=== PATIENT | female | born 1995 | race Caucasian/White ===

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

== ENCOUNTER 2017-01-29 08:35 | Emergency (ER) | payer OTHER ==
[2017-01-29 09:01] VITALS: BP 153/70; PULSE 83; RESP 16; TEMP 98.4
--- NOTE | 2017-01-29 09:27 | ED ---
General Adult HPI - General Chief complaint: Allergic Reaction Stated complaint: HIVES Time Seen by Provider: 01/29/17 09:11 Source: patient, RN notes reviewed Mode of arrival: ambulatory Limitations: no limitations - History of Present Illness Initial comments: 21-year-old female presents to the emergency department with a chief complaint of hives. Patient states yesterday she noticed some hives on her hands and feet. Patient states she woke up today and they were on her arms and legs. She took Benadryl which did help with the itching but she still is having some itching. Patient states she has a bad sunburn to the back from the float down so she thought it could be associated with that she denies any new soaps or detergents. She started some new psychiatric medications a week ago but states that this first time that she's noticed the hives. Patient denies any difficulty breathing or shortness of breath with these. Patient states she is not currently having any other symptoms. Patient denies any recent fever, chills , shortness of breath, chest pain, back pain, abdominal pain, nausea vomiting, numbness or tingling, dysuria or hematuria, constipation or diarrhea, headaches or visual changes, or any other current symptoms. - Related Data Home Medications Medication Instructions Recorded Confirmed Cyclobenzaprine [Flexeril] 5 mg PO TID PRN 01/29/17 01/29/17 Desvenlafaxine Succinate [Pristiq] 50 mg PO DAILY 01/29/17 01/29/17 Ibuprofen [Motrin] 800 mg PO TID PRN 01/29/17 01/29/17 OXcarbazepine [Trileptal] 300 mg PO BID 01/29/17 01/29/17 Previous Rx's Medication Instructions Recorded predniSONE 50 mg PO DAILY #5 tab 01/29/17 Allergies Allergy/AdvReac Type Severity Reaction Status Date / Time Sulfa (Sulfonamide Allergy Rash/Hives Verified 01/29/17 09:15 Antibiotics) Review of Systems ROS Statement: Those systems with pertinent positive or pertinent negative responses have been documented in the HPI. ROS Other: All systems not noted in ROS Statement are negative. Past Medical History Past Medical History: No Reported History History of Any Multi-Drug Resistant Organisms: MRSA Date of last positivie culture/infection: 2015 MDRO Source:: left side abscess Past Surgical History: No Surgical Hx Reported Past Psychological History: Anxiety, Bipolar, Depression Smoking Status: Never smoker Past Alcohol Use History: None Reported Past Drug Use History: None Reported General Exam Limitations: no limitations General appearance: alert, in no apparent distress ENT exam: Present: normal exam, mucous membranes moist Neck exam: Present: normal inspection. Absent: tenderness, meningismus, lymphadenopathy Respiratory exam: Present: normal lung sounds bilaterally. Absent: respiratory distress, wheezes, rales, rhonchi, stridor Cardiovascular Exam: Present: regular rate, normal rhythm, normal heart sounds. Absent: systolic murmur, diastolic murmur, rubs, gallop, clicks Neurological exam: Present: alert, oriented X3 Psychiatric exam: Present: normal affect, normal mood Skin exam: Present: warm, dry, urticaria (Diffusely), other (Sunburn to the back ) Course Vital Signs 01/29/17 08:56 Temperature 98.4 F Pulse Rate 83 Respiratory 16 Rate Blood Pressure 153/70 O2 Sat by Pulse 96 Oximetry Medical Decision Making - Medical Decision Making 21-year-old female presents emergency Department with a chief complaint of urticaria. At this time we will start patient steroids. We discussed continuing to take Benadryl. We did discuss return parameters follow-up and all the patient's questions. They stated they understood and the on agreement this plan. All questions have been answered. They will be discharged. Disposition Clinical Impression: Urticaria, Sunburn Disposition: HOME SELF-CARE Condition: Stable Instructions: Urticaria (ED) Additional Instructions: Please use medication as discussed. Please follow up with family doctor if symptoms have not improved over the next two days. Please return to the emergency room if your symptoms increase or worsen or for any other concerns. Prescriptions: predniSONE 50 mg PO DAILY #5 tab Referrals: Bryan Magdaleno MD [Primary Care Provider] - 1-2 days Time of Disposition: 09:27
== END 2017-01-29 09:35 | disposition home or self-care (01) ==
LOC: EC 08:35
DX: L50.0 Allergic urticaria (principal); L55.9 Sunburn, unspecified; F41.9 Anxiety disorder, unspecified; F31.9 Bipolar disorder, unspecified; Z86.14 Personal history of Methicillin resistant Staphylococcus aureus infection; Z79.899 Other long term (current) drug therapy; Z88.2 Allergy status to sulfonamides
CPT/HCPCS: 99283

== ENCOUNTER 2017-09-10 22:35 | Emergency (ER) | payer OTHER ==
[2017-09-10] MEDS ORDERED: KETOROLAC 60 MG/2 ML VIAL IM STA (23:33)
[2017-09-11 00:04] LABS: Appearance,Urine Clear (Clear); Bilirubin,Urine Negative (Negative); Blood,Urine Negative (Negative); Color,Urine Yellow; Glucose,Urine (UA) Negative (Negative); Ketones,Urine Negative (Negative); Leukocyte Esterase,Urine Small (Negative); Mucus,Urine Occasional /hpf; Nitrite,Urine Negative (Negative); Protein,Urine Negative (Negative); RBC,Urine <1 /hpf (0-5); Specific Gravity,Urine 1.023 (1.001-1.035); Squamous Epithelial Cell,Urine 7 /hpf (0-4); WBC,Urine 6 /hpf (0-5)
--- NOTE | 2017-09-11 00:15 | XR ---
EXAMINATION TYPE: XR chest 2V DATE OF EXAM: 09/11/2017 COMPARISON: NONE HISTORY: Left rib pain TECHNIQUE: Frontal and lateral views of the chest are obtained. FINDINGS: Heart and mediastinum are normal. Lungs are clear. Diaphragm is normal. Bony thorax appear s normal. IMPRESSION: Multiple chest
--- NOTE | 2017-09-11 00:41 | ED ---
Back Pain HPI - General Chief Complaint: Back Pain/Injury Stated Complaint: rib pain Time Seen by Provider: 09/10/17 22:59 Source: patient Limitations: no limitations - History of Present Illness Initial Comments: 22-year-old female presenting for evaluation of left-sided rib pain. She states this started while she was vomiting a couple days ago and acutely worsened yesterday. Pain is to the left lower posterior rib and is tender along the rib itself. She denies any continued nausea and vomiting. There is no hematuria or urinary frequency. Pain is worse with deep inspiration only at that site and not within the rest of the chest. She has not taken any medications for symptom control and states that she takes shallow breaths the pain is not as bad. - Related Data Previous Rx's Medication Instructions Recorded Ibuprofen [Motrin] 800 mg PO Q6HR #30 tab 09/11/17 Allergies Allergy/AdvReac Type Severity Reaction Status Date / Time Sulfa (Sulfonamide Allergy Rash/Hives Verified 09/10/17 22:59 Antibiotics) Review of Systems ROS Statement: Those systems with pertinent positive or pertinent negative responses have been documented in the HPI. ROS Other: All systems not noted in ROS Statement are negative. Constitutional: Denies: fever, chills Eyes: Denies: eye pain, vision change ENT: Denies: ear pain, throat pain Respiratory: Denies: cough, dyspnea, wheezes Cardiovascular: Denies: chest pain, palpitations Gastrointestinal: Reports: nausea, vomiting. Denies: abdominal pain Genitourinary: Denies: urgency, dysuria, hematuria Musculoskeletal: Reports: back pain. Denies: arthralgia, myalgia Skin: Denies: rash, lesions Neurological: Denies: headache, weakness Past Medical History Past Medical History: No Reported History History of Any Multi-Drug Resistant Organisms: MRSA Date of last positivie culture/infection: 2015 MDRO Source:: left side abscess Past Surgical History: No Surgical Hx Reported Past Psychological History: Anxiety, Bipolar, Depression Smoking Status: Never smoker Past Alcohol Use History: Occasional Past Drug Use History: Marijuana General Exam Limitations: no limitations General appearance: alert, in no apparent distress Head exam: Present: atraumatic, normocephalic, normal inspection Eye exam: Present: normal appearance, PERRL, EOMI. Absent: scleral icterus, conjunctival injection Neck exam: Present: normal inspection, tenderness Respiratory exam: Present: normal lung sounds bilaterally, chest wall tenderness (Left lower chest wall along rib #10). Absent: respiratory distress , wheezes, rales, rhonchi, stridor Cardiovascular Exam: Present: regular rate, normal rhythm GI/Abdominal exam: Present: soft. Absent: distended, tenderness, guarding, rebound, rigid Rectal exam: Present: deferred Extremities exam: Present: normal inspection, full ROM Back exam: Present: full ROM, tenderness. Absent: vertebral tenderness, rash noted Neurological exam: Present: alert, oriented X3 Psychiatric exam: Present: normal affect, normal mood Skin exam: Present: warm, dry, intact Course Vital Signs 09/10/17 22:37 Temperature 98.6 F Pulse Rate 87 Respiratory 18 Rate Blood Pressure 131/87 O2 Sat by Pulse 98 Oximetry Medical Decision Making - Medical Decision Making 22-year-old female presented for evaluation of left lower rib pain following particularly forceful vomiting. On physical examination she has tenderness along rib #10 however chest x-ray shows no acute process. Labs revealed no significant abnormalities and the patient was given intramuscular Toradol and on reevaluation had improvement in her symptoms. She was informed of results and through shared decision making it was determined that she would be discharged with instructions to follow-up with her primary care physician but to return to this facility if her symptoms should worsen or persist. The patient acknowledged an understanding of all information provided and agreed with this plan of care. - Lab Data Lab Results 09/10/17 09/10/17 Range/Units 23:52 23:52 Urine Color Yellow Urine Appearance Clear (Clear) Urine pH 6.0 (5.0-8.0) Ur Specific [place] 1.023 (1.001-1.035) Urine Protein Negative (Negative) Urine Glucose (UA) Negative (Negative) Urine Ketones Negative (Negative) Urine Blood Negative (Negative) Urine Nitrite Negative (Negative) Urine Bilirubin Negative (Negative) Urine Urobilinogen 2.0 (<2.0) mg/dL Ur Leukocyte Esterase Small H (Negative) Urine RBC <1 (0-5) /hpf Urine WBC 6 H (0-5) /hpf Ur Squamous Epith Cells 7 H (0-4) /hpf Urine Mucus Occasional H (None) /hpf Urine HCG, Qual Not Detected (Not Detectd) Disposition Clinical Impression: Rib pain on left side Disposition: HOME SELF-CARE Condition: Stable Instructions: Costochondritis (ED) Additional Instructions: Please use medication as discussed. Please follow up with family doctor if symptoms have not improved over the next two days. Please return to the emergency room if your symptoms increase or worsen or for any other concerns. Prescriptions: Ibuprofen [Motrin] 800 mg PO Q6HR #30 tab Referrals: Bryan Magdaleno MD [Primary Care Provider] - 1-2 days Time of Disposition: 00:41
[2017-09-11 00:52] VITALS: BP 106/63; PULSE 82; RESP 16; TEMP 97.3
== END 2017-09-11 00:52 | disposition home or self-care (01) ==
LOC: EC 22:35
DX: R07.81 Pleurodynia (principal); Z86.14 Personal history of Methicillin resistant Staphylococcus aureus infection; Z88.2 Allergy status to sulfonamides
CPT/HCPCS: 99283; 96372; 81001; 81025; 71046; J1885

== ENCOUNTER 2017-11-25 12:00 | Emergency (ER) | payer OTHER ==
--- NOTE | 2017-11-25 13:05 | ED ---
General Adult HPI - General Chief complaint: Vaginal Bleeding Stated complaint: early preg/bleeding & cramping Time Seen by Provider: 11/25/17 13:00 Source: patient, RN notes reviewed Mode of arrival: ambulatory Limitations: no limitations - History of Present Illness Initial comments: Patient 22-year-old female who is G2, P1 approximately 4-6 weeks by last menstrual cycle, presenting to the emergency room today with a chief complaint of abdominal cramping and some vaginal spotting that was this morning. States her spotting at this time. Patient does admit still some cramping. Unable to see her OB physician came here to the emergency room. Patient states she plans to see Dr. Gutierrez. Patient denies any other complaints or symptoms at this time. Patient denies any recent fever, chills, shortness of breath, chest pain, back pain, nausea or vomiting, numbness or tingling, dysuria or hematuria, constipation or diarrhea, headaches or visual changes, or any other complaints. - Related Data Previous Rx's Medication Instructions Recorded Nitrofurantoin Monohyd/M-Cryst 100 mg PO Q12HR #14 cap 11/25/17 [Macrobid] Allergies Allergy/AdvReac Type Severity Reaction Status Date / Time Sulfa (Sulfonamide Allergy Rash/Hives Verified 11/25/17 13:19 Antibiotics) Review of Systems ROS Statement: Those systems with pertinent positive or pertinent negative responses have been documented in the HPI. ROS Other: All systems not noted in ROS Statement are negative. Past Medical History Past Medical History: No Reported History History of Any Multi-Drug Resistant Organisms: MRSA Date of last positivie culture/infection: 2015 MDRO Source:: left side abscess Past Surgical History: No Surgical Hx Reported Past Psychological History: Anxiety, Bipolar, Depression Smoking Status: Never smoker Past Alcohol Use History: None Reported Past Drug Use History: Marijuana General Exam - General Exam Comments Initial Comments: General: The patient is awake and alert, in no distress, and does not appear acutely ill. Eye: Pupils are equal, round and reactive to light, extra-ocular movements are intact. No nystagmus. There is normal conjunctiva bilaterally. No signs of icterus. Ears, nose, mouth and throat: There are moist mucous membranes and no oral lesions. Neck: The neck is supple, there is no tenderness or JVD. Cardiovascular: There is a regular rate and rhythm. No murmur, rub or gallop is appreciated. Respiratory: Lungs are clear to auscultation, respirations are non-labored, breath sounds are equal. No wheezes, stridor, rales, or rhonchi. Gastrointestinal: Soft, non-distended, non-tender abdomen without masses or organomegaly noted. There is no rebound or guarding present. No CVA tenderness. Musculoskeletal: Normal ROM, no tenderness. Strength 5/5. Sensation intact. Pulses equal bilaterally 2+. Neurological: A&O x 3. CN II-XII intact, There are no obvious motor or sensory deficits. Coordination appears grossly intact. Speech is normal. Skin: Skin is warm and dry and no rashes or lesions are noted. Psychiatric: Cooperative, appropriate mood & affect, normal judgment. Limitations: no limitations Course Vital Signs 11/25/17 12:14 Temperature 98.8 F Pulse Rate 92 Respiratory 18 Rate Blood Pressure 116/74 O2 Sat by Pulse 100 Oximetry Medical Decision Making - Medical Decision Making Patient's labs reviewed and does show mild elevation of liver enzymes. No old labs to compare to. Patient's urinalysis shows a few squamous cells but possible urinary tract infection. Patient is Rh-. She had spotting earlier in the day. No bleeding at this time. Patient will be given Venecia. Her ultrasound shows no IUP. Does show ovarian cyst on the right. Cannot exclude possible ectopic versus early gestation versus missed . Patient's beta hCG 447 today. Patient resting comfortably at this time. Abdomen soft on palpation. Case was discussed with attending physician Dr. Saleem. Patient will be given Venecia prior to discharge to follow-up the OB over the next 2 days. Will be given a prescription for antibiotics of Macrobid to cover for UTI as cultures pending. Will be given a prescription for repeat blood draw 2 days. Patient advised return if symptoms increase worsen or fail concerns. - Lab Data Result diagrams: 11/25/17 13:32 11/25/17 13:32 Lab Results 11/25/17 11/25/17 11/25/17 Range/Units 13:32 13:32 13:32 WBC 5.7 (4.0-11.0) k/uL RBC 4.60 (3.80-5.40) m/uL Hgb 13.8 (11.4-16.0) gm/dL Hct 39.9 (34.0-46.0) % MCV 86.6 (80.0-100.0) fL MCH 29.9 (25.0-35.0) pg MCHC 34.5 (31.0-37.0) g/dL RDW 12.9 (11.5-15.5) % Plt Count 176 (150-450) k/uL Neutrophils % 68 % Lymphocytes % 19 % Monocytes % 6 % Eosinophils % 5 % Basophils % 1 % Neutrophils # 3.9 (1.3-7.7) k/uL Lymphocytes # 1.1 (1.0-4.8) k/uL Monocytes # 0.3 (0-1.0) k/uL Eosinophils # 0.3 (0-0.7) k/uL Basophils # 0.0 (0-0.2) k/uL Sodium 139 (137-145) mmol/L Potassium 3.8 (3.5-5.1) mmol/L Chloride 105 (98-107) mmol/L Carbon Dioxide 24 (22-30) mmol/L Anion Gap 10 mmol/L BUN 5 L (7-17) mg/dL Creatinine 0.40 L (0.52-1.04) mg/dL Est GFR (CKD-EPI)AfAm >90 (>60 ml/min/1.73 sqM) Est GFR (CKD-EPI)NonAf >90 (>60 ml/min/1.73 sqM) Glucose 97 (74-99) mg/dL Calcium 9.4 (8.4-10.2) mg/dL Total Bilirubin 0.7 (0.2-1.3) mg/dL AST 195 H (14-36) U/L ALT 262 H (9-52) U/L Alkaline Phosphatase 81 (38-126) U/L Total Protein 6.9 (6.3-8.2) g/dL Albumin 4.0 (3.5-5.0) g/dL HCG, Quant 447.6 mIU/mL Urine Color Urine Appearance (Clear) Urine pH (5.0-8.0) Ur Specific [place] (1.001-1.035) Urine Protein (Negative) Urine Glucose (UA) (Negative) Urine Ketones (Negative) Urine Blood (Negative) Urine Nitrite (Negative) Urine Bilirubin (Negative) Urine Urobilinogen (<2.0) mg/dL Ur Leukocyte Esterase (Negative) Urine RBC (0-5) /hpf Urine WBC (0-5) /hpf Ur Squamous Epith Cells (0-4) /hpf Amorphous Sediment (None) /hpf Urine Bacteria (None) /hpf Urine Mucus (None) /hpf Blood Type A Negative Blood Type Recheck No 11/25/17 Range/Units 13:32 WBC (4.0-11.0) k/uL RBC (3.80-5.40) m/uL Hgb (11.4-16.0) gm/dL Hct (34.0-46.0) % MCV (80.0-100.0) fL MCH (25.0-35.0) pg MCHC (31.0-37.0) g/dL RDW (11.5-15.5) % Plt Count (150-450) k/uL Neutrophils % % Lymphocytes % % Monocytes % % Eosinophils % % Basophils % % Neutrophils # (1.3-7.7) k/uL Lymphocytes # (1.0-4.8) k/uL Monocytes # (0-1.0) k/uL Eosinophils # (0-0.7) k/uL Basophils # (0-0.2) k/uL Sodium (137-145) mmol/L Potassium (3.5-5.1) mmol/L Chloride (98-107) mmol/L Carbon Dioxide (22-30) mmol/L Anion Gap mmol/L BUN (7-17) mg/dL Creatinine (0.52-1.04) mg/dL Est GFR (CKD-EPI)AfAm (>60 ml/min/1.73 sqM) Est GFR (CKD-EPI)NonAf (>60 ml/min/1.73 sqM) Glucose (74-99) mg/dL Calcium (8.4-10.2) mg/dL Total Bilirubin (0.2-1.3) mg/dL AST (14-36) U/L ALT (9-52) U/L Alkaline Phosphatase (38-126) U/L Total Protein (6.3-8.2) g/dL Albumin (3.5-5.0) g/dL HCG, Quant mIU/mL Urine Color Yellow Urine Appearance Cloudy H (Clear) Urine pH 7.0 (5.0-8.0) Ur Specific [place] 1.007 (1.001-1.035) Urine Protein Negative (Negative) Urine Glucose (UA) Negative (Negative) Urine Ketones Negative (Negative) Urine Blood Negative (Negative) Urine Nitrite Negative (Negative) Urine Bilirubin Negative (Negative) Urine Urobilinogen <2.0 (<2.0) mg/dL Ur Leukocyte Esterase Large H (Negative) Urine RBC 29 H (0-5) /hpf Urine WBC 58 H (0-5) /hpf Ur Squamous Epith Cells 86 H (0-4) /hpf Amorphous Sediment Rare H (None) /hpf Urine Bacteria Rare H (None) /hpf Urine Mucus Occasional H (None) /hpf Blood Type Blood Type Recheck Disposition Clinical Impression: UTI (urinary tract infection), Threatened miscarriage Disposition: HOME SELF-CARE Condition: Good Instructions: Threatened Miscarriage (ED) Additional Instructions: Please use antibiotic as prescribed. Please follow-up with OB and have repeat blood draw in 2 days. Please return to emergency room if any symptoms increase worsen. Prescriptions: Nitrofurantoin Monohyd/M-Cryst [Macrobid] 100 mg PO Q12HR #14 cap Is patient prescribed a controlled substance at d/c from ED?: No Referrals: Bryan Magdaleno MD [Primary Care Provider] - 1-2 days Mariely Gutierrez DO [Doctor of Osteopathic Medicine] - 1-2 days Time of Disposition: 15:03
[2017-11-25 13:55] LABS: Basophils % (A) 1 %; Eosinophils # (A) 0.3 k/uL (0-0.7); Eosinophils % (A) 5 %; HCT 39.9 % (34.0-46.0); HGB 13.8 gm/dL (11.4-16.0); Lymphocytes # (A) 1.1 k/uL (1.0-4.8); Lymphocytes % (A) 19 %; MCH 29.9 pg (25.0-35.0); MCHC 34.5 g/dL (31.0-37.0); MCV 86.6 fL (80.0-100.0); Monocytes # (A) 0.3 k/uL (0-1.0); Monocytes % (A) 6 %; Neutrophils # (A) 3.9 k/uL (1.3-7.7); Neutrophils % (A) 68 %; Platelet Count 176 k/uL (150-450); RDW 12.9 % (11.5-15.5); WBC 5.7 k/uL (4.0-11.0)
[2017-11-25 14:02] LABS: Amorphous Sediment,Urine Rare /hpf; Appearance,Urine Cloudy (Clear); Bacteria,Urine Rare /hpf; Bilirubin,Urine Negative (Negative); Blood,Urine Negative (Negative); Color,Urine Yellow; Glucose,Urine (UA) Negative (Negative); Ketones,Urine Negative (Negative); Leukocyte Esterase,Urine Large (Negative); Mucus,Urine Occasional /hpf; Nitrite,Urine Negative (Negative); Protein,Urine Negative (Negative); RBC,Urine 29 /hpf (0-5); Specific Gravity,Urine 1.007 (1.001-1.035); Squamous Epithelial Cell,Urine 86 /hpf (0-4); Urobilinogen,Urine <2.0 mg/dL (<2.0); WBC,Urine 58 /hpf (0-5)
[2017-11-25 14:06] LABS: ALT 262 U/L (9-52); AST 195 U/L (14-36); Alkaline Phosphatase 81 U/L (38-126); Anion Gap 10 mmol/L; Blood Urea Nitrogen 5 mg/dL (7-17); Calcium 9.4 mg/dL (8.4-10.2); Carbon Dioxide 24 mmol/L (22-30); Chloride 105 mmol/L (98-107); Glucose 97 mg/dL (74-99); Potassium 3.8 mmol/L (3.5-5.1); Sodium 139 mmol/L (137-145); Total Bilirubin 0.7 mg/dL (0.2-1.3); Total Protein 6.9 g/dL (6.3-8.2)
[2017-11-25 14:20] LABS: HCG,Quantitative Serum 447.6 mIU/mL
--- NOTE | 2017-11-25 14:30 | US ---
EXAMINATION TYPE: Transabdominal DATE OF EXAM: 09/08/17 COMPARISON: NONE CLINICAL HISTORY: Pain. Pt states vaginal spotting and cramping that started today EXAM PERFORMED: Transvaginal (TV) and Transabdominal (TA) EXAM MEASUREMENTS: GESTATIONAL AGE / DATING Physician Established: Not yet established Dates by LMP: (4 weeks/6 days) EDC: 07/29/2018 Dates by First Scan: no prior Dates by Current Scan for: No IUP seen at this time MATERNAL ANATOMY Uterus: 7.3 x 4.1 x 5.2 cm Right Ovary: 3.4 x 2.6 x 2.5 cm Left Ovary: 2.2 x 1.7 x 2.0 cm Post CDS / Adnexa: wnl Presence of free fluid: No Presence of corpus luteal cyst: Right Ovary= 2.3 x 1.7 x 1.7 cm GESTATION / SURVEY IUP: No IUP seen at this time Date of LMP: 10/22/2017 Beta HcG (if available): Not available at this time No IUP seen at this time, Endo thickness= 1.1 cm, probable corpus leut on right ovary IMPRESSION: No intrauterine or yolk sac identified. There is a right ovarian cyst measuring 2.3 cm. Dif ferential diagnosis would include normal too early to detect. Missed or ectopic pr egnancy not excluded. Correlate with serial beta hCG and pelvic ultrasound.
[2017-11-25] MEDS ORDERED: Rhogam IMMUNE GLOBULIN 1,500 UNIT/1 ML IM ONE (15:01)
[2017-11-25 16:40] VITALS: BP 112/74; PULSE 90; RESP 18; TEMP 99.2
== END 2017-11-25 16:39 | disposition home or self-care (01) ==
LOC: EC 12:00
DX: O20.0 Threatened abortion (principal); O23.41 Unspecified infection of urinary tract in pregnancy, first trimester; O34.81 Maternal care for other abnormalities of pelvic organs, first trimester; N83.201 Unspecified ovarian cyst, right side; Z3A.01 Less than 8 weeks gestation of pregnancy; Z86.14 Personal history of Methicillin resistant Staphylococcus aureus infection; Z88.2 Allergy status to sulfonamides
CPT/HCPCS: 99284; 96372; 36415; 86900; 86901; 80053; 85025; 86850; 81001; 84702; 87086; 76801; 76817; J2791

== ENCOUNTER → 2017-11-27 | Outpatient (CLI) | payer OTHER | END | disposition home or self-care (01) | LOC: LABWHC1 14:34 | PROVIDERS: ATTEND Physician Assistant | DX: O20.0 Threatened abortion (principal); Z3A.00 Weeks of gestation of pregnancy not specified | CPT/HCPCS: 36415; 84702 ==

== ENCOUNTER → 2017-11-30 | Outpatient (CLI) | payer OTHER | END | disposition home or self-care (01) | LOC: LABWHC1 13:16 | PROVIDERS: ATTEND Obstetrics & Gynecology | DX: Z34.00 Encounter for supervision of normal first pregnancy, unspecified trimester (principal); Z3A.00 Weeks of gestation of pregnancy not specified | CPT/HCPCS: 36415; 84702 ==

== ENCOUNTER → 2017-12-14 | Outpatient (CLI) | payer OTHER ==
--- NOTE | 2017-12-14 13:46 | US ---
EXAMINATION TYPE: Transabdominal DATE OF EXAM: 09/08/17 COMPARISON: US 11/25/2017 CLINICAL HISTORY: Z36 confrim dates. EXAM PERFORMED: Transvaginal (TV) and Transabdominal (TA) EXAM MEASUREMENTS: GESTATIONAL AGE / DATING Physician Established: Unknown Dates by LMP: ( 7 weeks/ 4 days) EDC: 07/29/2018 Dates by First Scan; Unknown. IUP not seen. Dates by Current Scan for: ( 5 weeks/1 days) EDC: 08/08/2018 MATERNAL ANATOMY Uterus: 8.7 x 5.5 x 5.3 cm Right Ovary: 3.2 x 2.3 x 2.3 cm Left Ovary: 2.3 x 1.8 x 1.8 cm Post CDS / Adnexa: wnl Presence of free fluid: no Presence of corpus luteal cyst: right side = 1.9 x 1.2 x1.2 cm Presence of subchorionic bleed: 4 mm anterior to Gestational Sac. GESTATION / SURVEY CRL: ( weeks/ days) MSD: 1.8 cm 5 weeks/ 1 day Yolk Sac (normal less than 6mm): 0.5 cm Heart Rate: IUP not definitely identified. Rhythm: IUP not definitely identified IUP: No IUP seen at this time Nuchal Translucency 10-14wks (normal less than 3mm): IUP not definitely identified Date of LMP: 10/22/2017 Beta HcG (if available): IMPRESSION: Intrauterine gestational sac and yolk sac without current visualization of the pole . This may represent a normal intrauterine as the calculated sonographic age is 5 weeks and 1 day, however correlation with beta hCG trend is recommended and repeat pelvic ultrasound in 5-10 d ays to ensure findings do not represent anembryonic .
== END | disposition home or self-care (01) ==
LOC: RADUSWWP 12:23
PROVIDERS: ATTEND Obstetrics & Gynecology
DX: Z36.9 Encounter for antenatal screening, unspecified (principal)
CPT/HCPCS: 76801; 76817

== ENCOUNTER → 2017-12-15 | Outpatient (CLI) | payer OTHER | END | disposition home or self-care (01) | LOC: LABWHC1 11:44 | PROVIDERS: ATTEND Obstetrics & Gynecology | DX: Z34.00 Encounter for supervision of normal first pregnancy, unspecified trimester (principal); Z3A.00 Weeks of gestation of pregnancy not specified | CPT/HCPCS: 36415; 84702 ==

== ENCOUNTER → 2017-12-25 | Outpatient (CLI) | payer OTHER ==
--- NOTE | 2017-12-25 14:41 | US ---
EXAMINATION TYPE: Transabdominal DATE OF EXAM: 09/08/17 COMPARISON: First trimester ultrasound from 11 days ago CLINICAL HISTORY: Z36 follow up to abnormal US. Confirm dates, 2, para 1 EXAM PERFORMED: Transvaginal (TV) and Transabdominal (TA) EXAM MEASUREMENTS: GESTATIONAL AGE / DATING Physician Established: Not established yet Dates by LMP: (9 weeks/1 days) EDC: 07/29/2018 Dates by First Scan: (7 weeks/5 days) EDC: 08/08/2018 Dates by Current Scan for: (6 weeks/2 days) EDC: 08/18/2018 MATERNAL ANATOMY Uterus: 9.0 x 5.1 x 6.1cm, anteverted Right Ovary: 2.4 x 1.9 x 2.0cm Left Ovary: 2.4 x 1.4 x 1.8cm Post CDS / Adnexa: wnl Presence of free fluid: no Presence of corpus luteal cyst: right ovary: 1.5 x 1.3 x 1.6cm Presence of subchorionic bleed: no GESTATION / SURVEY CRL: 0.3cm (6 weeks/0 days) MSD: 2.0cm (6 weeks/3 days) Yolk Sac (normal less than 6mm): 5.8mm No heart tones seen at this time Date of LMP: 10/22/2017 Beta HcG (if available): Not available at time of exam There is persistent oval anechoic area with 3 mm rim hyperechoic area. This could reflect gestational sac and yolk sac. Some increased growth in gestational sac is noted. There is peripheral 3 mm nodula r area could reflect early pole. heart tones cannot be detected despite several attempts. No free fluid is seen in pelvis. Both ovaries are seen. Within right ovary there is 1.5 cm thin-walled cystic lesion likely reflecting corpus luteal cyst. No suspicious extra ovarian adnexal masses are noted. IMPRESSION: Suspected interval progression in intrauterine , correlate with beta-hCG values. Serial beta hCG and ultrasound follow-up is advised until heart rate is detected as other etiologies are n ot excluded.
== END | disposition home or self-care (01) ==
LOC: RADUSWWP 13:39
PROVIDERS: ATTEND Obstetrics & Gynecology
DX: O02.81 Inappropriate change in quantitative human chorionic gonadotropin (hCG) in early pregnancy (principal); Z3A.00 Weeks of gestation of pregnancy not specified
CPT/HCPCS: 76801; 76817

== ENCOUNTER → 2017-12-28 | Outpatient (CLI) | payer OTHER | END | disposition home or self-care (01) | LOC: LABWHC1 11:07 | PROVIDERS: ATTEND Obstetrics & Gynecology | DX: O03.9 Complete or unspecified spontaneous abortion without complication (principal) | CPT/HCPCS: 36415; 84702 ==

== ENCOUNTER → 2017-12-29 | Outpatient (CLI) | payer OTHER ==
[2017-12-29 11:55] LABS: Basophils % (A) 1 %; Eosinophils # (A) 0.1 k/uL (0-0.7); Eosinophils % (A) 2 %; HCT 38.5 % (34.0-46.0); HGB 12.7 gm/dL (11.4-16.0); Lymphocytes # (A) 1.8 k/uL (1.0-4.8); Lymphocytes % (A) 29 %; MCH 29.4 pg (25.0-35.0); Mean Platelet Volume 7.3; Monocytes # (A) 0.4 k/uL (0-1.0); Monocytes % (A) 6 %; Neutrophils # (A) 3.8 k/uL (1.3-7.7); Neutrophils % (A) 62 %; Platelet Count 228 k/uL (150-450); RBC 4.33 m/uL (3.80-5.40); RDW 13.3 % (11.5-15.5); WBC 6.1 k/uL (4.0-11.0)
== END | disposition home or self-care (01) ==
LOC: LABPAT 10:52
PROVIDERS: ATTEND Obstetrics & Gynecology
DX: Z01.812 Encounter for preprocedural laboratory examination (principal)
CPT/HCPCS: 36415; 85025

== ENCOUNTER 2017-12-31 06:11 | Day surgery (SDC) | payer OTHER ==
[2017-12-29 11:35] VITALS: BMI 30.1
--- NOTE | 2017-12-30 17:25 | P.HPOB ---
History of Present Illness H&P Date: 12/30/17 Chief Complaint: Missed This is a 22-year-old female 2 para 1 who presents with dropping beta hCG levels. Her ultrasounds have shown a sac but no pole. Her latest beta hCG level on 12/28/2017 was at 33,847 which is down from 54,165 earlier. She is having some cramping and light brown spotting with wiping. Her blood type is A- and she did receive RhoGAM in the emergency room. She was counseled on waiting for tissue to pass on its own versus dilation and curettage. She wishes to proceed with dilation and curettage. Obstetrical history: . History of 1 vaginal delivery at term with no complications. Gynecologic history: No history of sexually transmitted diseases. Her last menstrual period was 10/20/2017. Social history: She is single. She is currently not working. Review of Systems Constitutional: Denies chills, Denies fever Eyes: denies blurred vision, denies pain Ears, nose, mouth and throat: Denies headache, Denies sore throat Cardiovascular: Denies chest pain, Denies shortness of breath Respiratory: Denies cough Gastrointestinal: Denies abdominal pain, Denies diarrhea, Denies nausea, Denies vomiting Genitourinary: Reports abnormal vaginal bleeding, Reports pelvic pain, Reports Musculoskeletal: Denies myalgias Integumentary: Denies pruritus, Denies rash Neurological: Denies numbness, Denies weakness Psychiatric: Denies anxiety, Denies depression Past Medical History Past Medical History: Asthma Additional Past Medical History / Comment(s): MISSED AB. History of Any Multi-Drug Resistant Organisms: MRSA Date of last positivie culture/infection: 2015 MDRO Source:: left side abscess Additional Past Surgical History / Comment(s): WISDOM TEETH Past Anesthesia/Blood Transfusion Reactions: No Reported Reaction Past Psychological History: No Psychological Hx Reported Smoking Status: Former smoker Past Alcohol Use History: None Reported Past Drug Use History: Marijuana Additional Drug Use History / Comment(s): States she stopped marijuana when she found out she was - Past Family History Mother Family Medical History: No Reported History Medications and Allergies Home Medications Medication Instructions Recorded Confirmed Type Albuterol Inhaler [Ventolin Hfa 1 - 2 puff INHALATION RT-Q6H PRN 12/29/17 History Inhaler] Allergies Allergy/AdvReac Type Severity Reaction Status Date / Time Sulfa (Sulfonamide Allergy Rash/Hives Verified 12/29/17 10:57 Antibiotics) Exam Osteopathic Statement: *. No significant issues noted on an osteopathic structural exam other than those noted in the History and Physical/Consult. HEENT: Within normal limits Heart: Regular rate and rhythm Lungs: Clear to auscultation bilaterally Abdomen: Soft, nontender Pelvic exam: Uterus is approximate 9 week size and anteverted with no adnexal masses or tenderness noted. Extremities: Negative Homans Assessment and Plan (1) Missed Status: Acute Code(s): O02.1 - MISSED SNOMED Code(s): 53483548 Plan: Proceed with suction dilation and curettage. I have discussed the risks, benefits, and alternative therapies for the above- mentioned procedure and for both sedation/anesthesia as well as necessary blood products administration, if indicated, as they pertain to this patient. The patient has indicated her understanding and acceptance of the risks and procedures discussed.
[~2017-12-31 06:11] MED LIST: DEXAMETHASONE SOD PHOSPHATE 10 MG/ML 1 ML VIAL IV ONE; HYDROmorphone 0.5 MG/0.5 ML SYRINGE IVP PRN; LACTATED RINGERS 1,000 ML IV SCH; LIDOCAINE 1% 20 ML VIAL (10MG/ML) FOR IV START INTRADERMA PRN; ONDANSETRON 4 MG/2 ML VIAL IVP ONE; Pre Op ABX Message 1 EACH MISC MISCELLANE ONE; SCOPOLAMINE 1.5MG/72HR PATCH TRANSDERM ONE
[2017-12-31] MEDS ORDERED: ONDANSETRON 4 MG/2 ML VIAL ONE (06:47)
[2017-12-31] MEDS ORDERED: LIDOCAINE 1% INJ 10MG/ML (20 ML MDV) ONE (07:34)
[2017-12-31] MEDS ORDERED: fentaNYL (PF) 50 MCG/ML 2 ML AMP ONE (07:34)
[2017-12-31] MEDS ORDERED: PROPOFOL 10 MG/ML 20 ML VIAL IV ONE (07:34)
[2017-12-31] MEDS ORDERED: KETOROLAC 30 MG/ML 1 ML VIAL ONE (07:34)
--- NOTE | 2017-12-31 07:58 | P.OP ---
Date of Procedure: 12/31/17 Preoperative Diagnosis: Missed Postoperative Diagnosis: Same Procedure(s) Performed: Suction dilation and curettage Anesthesia: RAULITO Surgeon: Mariely Gutierrez Estimated Blood Loss (ml): 25 Pathology: other (Products of conception) Condition: stable Disposition: same day Indications for Procedure: This is a 22-year-old female 2 para 1 who presents with dropping beta hCG levels. Her ultrasounds have shown a sac but no pole. Her latest beta hCG level on 12/28/2017 was at 33,847 which is down from 54,165 earlier. She is having some cramping and light brown spotting with wiping. Her blood type is A- and she did receive RhoGAM in the emergency room. She was counseled on waiting for tissue to pass on its own versus dilation and curettage. She wishes to proceed with dilation and curettage. Operative Findings: Uterus is anteverted, with no adnexal masses palpated. Uterus is sounded to 10 cm. A large amount of products of conception were obtained. Description of Procedure: The patient was taken to the operating room where she is placed in the dorsal lithotomy position. She is prepped and draped in the normal sterile fashion. Bladder is drained with a catheter. Examination is performed under anesthesia. Uterus is found to be slightly enlarged, anteverted, with no adnexal masses palpated. Next a weighted speculum was placed in the patient's vagina and a right angle retractor was used to visualize the cervix. The anterior lip of the cervix is grasped with a single-tooth tenaculum. The uterus is sounded to 10 cm. Next the cervix is gently dilated with Sow dilators until a 9 mm curved suction curet to be placed. Suction curetting was performed with a large amount of products of conception obtained. Next a large curet was then gently introduced and gentle sharp curettage was performed with no further tissue obtained. Next suction curetting was performed one further time to remove any blood clot. Next single-tooth tenaculum was removed from the anterior lip of the cervix. Pressure was applied with a ring forcep. Excellent hemostasis was noted. All instrument cervix from the vagina. Patient is taken to recovery room in stable condition. All sponge and needle counts are correct.
[2017-12-31 08:04] VITALS: TEMP 96.8
[2017-12-31 09:01] VITALS: BP 105/61; PULSE 78; RESP 18
== END 2017-12-31 09:15 | disposition home or self-care (01) ==
LOC: OR 06:11
PROVIDERS: ATTEND Obstetrics & Gynecology
DX: O02.1 Missed abortion (principal); N85.4 Malposition of uterus; J45.909 Unspecified asthma, uncomplicated; Z86.14 Personal history of Methicillin resistant Staphylococcus aureus infection; Z87.891 Personal history of nicotine dependence; Z88.2 Allergy status to sulfonamides
CPT/HCPCS: 86900; 86901; 88305; 86850; 86870; 86880; 59820; J1100; J2405; J2001; J3010; J1885; J2704

== ENCOUNTER 2018-01-05 20:37 | Emergency (ER) | payer OTHER ==
[2018-01-05 21:04] VITALS: BP 123/84; PULSE 90; RESP 18; TEMP 98.8
[2018-01-05] MEDS ORDERED: SODIUM CHLORIDE 0.9% 1,000 ML IV ONE (22:53)
[2018-01-05] MEDS ORDERED: KETOROLAC 30 MG/ML 1 ML VIAL IVP STA (22:53)
--- NOTE | 2018-01-05 22:58 | ED ---
Abdominal Pain HPI - General Chief Complaint: Abdominal Pain Stated Complaint: Post Opt/Female Time Seen by Provider: 01/05/18 22:36 Source: patient Mode of arrival: ambulatory Limitations: no limitations - History of Present Illness Initial Comments: 22-year-old female patient presents to emergency department today for complaints of increased vaginal bleeding. Patient is status post suction D&C on , 12/31/2017. Patient states that she is approximately 10 weeks and had demise. Patient states that she was doing well after the D&C however yesterday started to have increased vaginal bleeding. Patient states that the bleeding worsen significantly today and she started passing very large clots. Patient states that she soaked 3 pads in an hour. States that this time the bleeding has slowed somewhat has become brighter in color. Patient states she has been having consistent cramping since yesterday however she has periods where the pain becomes intense. States that the pain radiates to her back. She denies any fever or chills. Denies any difficulty with urination or bowel movements. She denies any nausea or vomiting. Patient denies any recent rash, shortness breath, chest pain, numbness, tingling, dizziness, weakness, dysuria, urinary urgency, urinary frequency, headache, visual changes, or any other complaints. - Related Data Home Medications Medication Instructions Recorded Confirmed Albuterol Inhaler [Ventolin Hfa 2 puff INHALATION RT-Q6H PRN 12/29/17 01/05/18 Inhaler] Ibuprofen [Motrin Ib] 200 mg PO Q4HR PRN 01/05/18 01/05/18 Previous Rx's Medication Instructions Recorded Acetaminophen-Codeine 300-30mg 1 tab PO Q6H PRN #12 tablet 01/06/18 [Tylenol #3] Allergies Allergy/AdvReac Type Severity Reaction Status Date / Time Sulfa (Sulfonamide Allergy Rash/Hives Verified 01/05/18 22:39 Antibiotics) Review of Systems ROS Statement: Those systems with pertinent positive or pertinent negative responses have been documented in the HPI. ROS Other: All systems not noted in ROS Statement are negative. Past Medical History Past Medical History: No Reported History History of Any Multi-Drug Resistant Organisms: MRSA Date of last positivie culture/infection: 2015 MDRO Source:: left side abscess Past Surgical History: No Surgical Hx Reported Additional Past Surgical History / Comment(s): D and C Past Psychological History: Anxiety, Bipolar, Depression Smoking Status: Never smoker Past Alcohol Use History: Occasional Past Drug Use History: Marijuana General Exam Limitations: no limitations General appearance: alert, in no apparent distress Eye exam: Present: normal appearance, PERRL, EOMI. Absent: scleral icterus, conjunctival injection, periorbital swelling ENT exam: Present: normal exam, normal oropharynx, mucous membranes moist Respiratory exam: Present: normal lung sounds bilaterally. Absent: respiratory distress, wheezes, rales, rhonchi, stridor Cardiovascular Exam: Present: regular rate, normal rhythm, normal heart sounds. Absent: systolic murmur, diastolic murmur, rubs, gallop, clicks GI/Abdominal exam: Present: soft, tenderness (suprapubic tenderness), normal bowel sounds. Absent: distended, guarding, rebound, rigid External exam: Present: normal external exam Speculum exam: Present: vaginal bleeding (mild vaginal bleeding dark red in color) By manual exam: Present: adnexal tenderness, uterine tenderness Neurological exam: Present: alert, oriented X3, CN II-XII intact Psychiatric exam: Present: normal affect, normal mood Skin exam: Present: warm, dry, intact, normal color. Absent: rash Course Vital Signs 01/05/18 21:01 Temperature 98.8 F Pulse Rate 90 Respiratory 18 Rate Blood Pressure 123/84 O2 Sat by Pulse 99 Oximetry Medical Decision Making - Medical Decision Making 22-year-old female patient presented to the emergency department today for heavy vaginal bleeding with passage of large clots. Patient underwent D&C with Dr. Gutierrez last . Physical examination did reveal some suprapubic abdominal tenderness. Pelvic examination was performed and showed mild bleeding that is dark red in color. She had uterine tenderness on bimanual exam. Labs reviewed and are unremarkable. Urinalysis was sent for culture. Ultrasound of the pelvis was obtained and showed normal uterus and endometrium. I did discuss findings and results with the patient. Patient is feeling better after receiving medications here in the emergency department. She does have an appointment with Dr. Gutierrez on , she is urged to keep this appointment. Return parameters were discussed in detail. She verbalizes understanding and agrees with this plan. - Lab Data Result diagrams: 01/05/18 22:55 01/05/18 22:55 Lab Results 01/05/18 01/05/18 01/05/18 Range/Units 22:55 22:55 22:55 WBC 8.7 (4.0-11.0) k/uL RBC 4.41 (3.80-5.40) m/uL Hgb 13.2 (11.4-16.0) gm/dL Hct 39.3 (34.0-46.0) % MCV 89.1 (80.0-100.0) fL MCH 30.0 (25.0-35.0) pg MCHC 33.7 (31.0-37.0) g/dL RDW 13.2 (11.5-15.5) % Plt Count 237 (150-450) k/uL Neutrophils % 69 % Lymphocytes % 23 % Monocytes % 4 % Eosinophils % 2 % Basophils % 1 % Neutrophils # 6.0 (1.3-7.7) k/uL Lymphocytes # 2.0 (1.0-4.8) k/uL Monocytes # 0.4 (0-1.0) k/uL Eosinophils # 0.2 (0-0.7) k/uL Basophils # 0.1 (0-0.2) k/uL PT 10.1 (9.0-12.0) sec INR 1.0 (<1.2) APTT 25.6 (22.0-30.0) sec Sodium 138 (137-145) mmol/L Potassium 4.1 (3.5-5.1) mmol/L Chloride 104 (98-107) mmol/L Carbon Dioxide 26 (22-30) mmol/L Anion Gap 8 mmol/L BUN 11 (7-17) mg/dL Creatinine 0.61 (0.52-1.04) mg/dL Est GFR (CKD-EPI)AfAm >90 (>60 ml/min/1.73 sqM) Est GFR (CKD-EPI)NonAf >90 (>60 ml/min/1.73 sqM) Glucose 97 (74-99) mg/dL Calcium 9.4 (8.4-10.2) mg/dL Total Bilirubin 0.7 (0.2-1.3) mg/dL AST 27 (14-36) U/L ALT 39 (9-52) U/L Alkaline Phosphatase 59 (38-126) U/L Total Protein 7.0 (6.3-8.2) g/dL Albumin 4.1 (3.5-5.0) g/dL Urine Color Urine Appearance (Clear) Urine pH (5.0-8.0) Ur Specific Queen (1.001-1.035) Urine Protein (Negative) Urine Glucose (UA) (Negative) Urine Ketones (Negative) Urine Blood (Negative) Urine Nitrite (Negative) Urine Bilirubin (Negative) Urine Urobilinogen (<2.0) mg/dL Ur Leukocyte Esterase (Negative) Urine RBC (0-5) /hpf Urine WBC (0-5) /hpf Ur Squamous Epith Cells (0-4) /hpf Urine Bacteria (None) /hpf Urine Mucus (None) /hpf 01/05/18 Range/Units 22:55 WBC (4.0-11.0) k/uL RBC (3.80-5.40) m/uL Hgb (11.4-16.0) gm/dL Hct (34.0-46.0) % MCV (80.0-100.0) fL MCH (25.0-35.0) pg MCHC (31.0-37.0) g/dL RDW (11.5-15.5) % Plt Count (150-450) k/uL Neutrophils % % Lymphocytes % % Monocytes % % Eosinophils % % Basophils % % Neutrophils # (1.3-7.7) k/uL Lymphocytes # (1.0-4.8) k/uL Monocytes # (0-1.0) k/uL Eosinophils # (0-0.7) k/uL Basophils # (0-0.2) k/uL PT (9.0-12.0) sec INR (<1.2) APTT (22.0-30.0) sec Sodium (137-145) mmol/L Potassium (3.5-5.1) mmol/L Chloride (98-107) mmol/L Carbon Dioxide (22-30) mmol/L Anion Gap mmol/L BUN (7-17) mg/dL Creatinine (0.52-1.04) mg/dL Est GFR (CKD-EPI)AfAm (>60 ml/min/1.73 sqM) Est GFR (CKD-EPI)NonAf (>60 ml/min/1.73 sqM) Glucose (74-99) mg/dL Calcium (8.4-10.2) mg/dL Total Bilirubin (0.2-1.3) mg/dL AST (14-36) U/L ALT (9-52) U/L Alkaline Phosphatase (38-126) U/L Total Protein (6.3-8.2) g/dL Albumin (3.5-5.0) g/dL Urine Color Light Red Urine Appearance Cloudy H (Clear) Urine pH 6.5 (5.0-8.0) Ur Specific Queen 1.015 (1.001-1.035) Urine Protein 1+ H (Negative) Urine Glucose (UA) Negative (Negative) Urine Ketones Negative (Negative) Urine Blood Large H (Negative) Urine Nitrite Negative (Negative) Urine Bilirubin Negative (Negative) Urine Urobilinogen 2.0 (<2.0) mg/dL Ur Leukocyte Esterase Moderate H (Negative) Urine RBC 1 (0-5) /hpf Urine WBC 15 H (0-5) /hpf Ur Squamous Epith Cells 9 H (0-4) /hpf Urine Bacteria Rare H (None) /hpf Urine Mucus Few H (None) /hpf - Radiology Data Radiology results: report reviewed, image reviewed Transvaginal ultrasound of the pelvis was obtained. Report was reviewed in its entirety. Impression by Dr. Saavedra shows normal transvaginal pelvic sonogram. No evidence of ovarian torsion. Normal uterus and endometrium. Disposition Clinical Impression: Dysfunctional uterine bleeding Disposition: HOME SELF-CARE Condition: Good Instructions: Dysfunctional Uterine Bleeding (ED) Additional Instructions: Increase fluids. Follow-up with your primary care physician for recheck in 1-2 days. Follow-up with Dr. Gutierrez for recheck as soon as possible. Return here immediately for any new, worsening, or concerning symptoms. Prescriptions: Acetaminophen-Codeine 300-30mg [Tylenol #3] 1 tab PO Q6H PRN #12 tablet PRN Reason: Pain Is patient prescribed a controlled substance at d/c from ED?: Yes When asked, does pt state using other controlled substances?: No If prescribed controlled substance>3 days was MAPS reviewed?: Prescribed <3 Days If opioid is for acute pain is fill amount 7 days or less?: Yes If Rx opioid, was Start Talking consent form obtained?: Yes Referrals: Bryan Magdaleno MD [Primary Care Provider] - 1-2 days Mariely Gutierrez DO [Doctor of Osteopathic Medicine] - 1-2 days Time of Disposition: 01:01
[2018-01-05 23:15] LABS: Basophils # (A) 0.1 k/uL (0-0.2); Basophils % (A) 1 %; Eosinophils # (A) 0.2 k/uL (0-0.7); Eosinophils % (A) 2 %; HCT 39.3 % (34.0-46.0); HGB 13.2 gm/dL (11.4-16.0); Lymphocytes % (A) 23 %; MCHC 33.7 g/dL (31.0-37.0); MCV 89.1 fL (80.0-100.0); Mean Platelet Volume 6.9; Monocytes # (A) 0.4 k/uL (0-1.0); Monocytes % (A) 4 %; Neutrophils % (A) 69 %; Platelet Count 237 k/uL (150-450); RBC 4.41 m/uL (3.80-5.40); RDW 13.2 % (11.5-15.5); WBC 8.7 k/uL (4.0-11.0)
[2018-01-05 23:20] LABS: Appearance,Urine Cloudy (Clear); Bacteria,Urine Rare /hpf; Bilirubin,Urine Negative (Negative); Blood,Urine Large (Negative); Color,Urine Light Red; Glucose,Urine (UA) Negative (Negative); Ketones,Urine Negative (Negative); Leukocyte Esterase,Urine Moderate (Negative); Mucus,Urine Few /hpf; Nitrite,Urine Negative (Negative); PH, Urine 6.5 (5.0-8.0); Protein,Urine 1+ (Negative); RBC,Urine 1 /hpf (0-5); Specific Gravity,Urine 1.015 (1.001-1.035); Squamous Epithelial Cell,Urine 9 /hpf (0-4); WBC,Urine 15 /hpf (0-5)
[2018-01-05 23:26] LABS: ALT 39 U/L (9-52); AST 27 U/L (14-36); Albumin 4.1 g/dL (3.5-5.0); Alkaline Phosphatase 59 U/L (38-126); Anion Gap 8 mmol/L; Blood Urea Nitrogen 11 mg/dL (7-17); Calcium 9.4 mg/dL (8.4-10.2); Carbon Dioxide 26 mmol/L (22-30); Chloride 104 mmol/L (98-107); Glucose 97 mg/dL (74-99); Potassium 4.1 mmol/L (3.5-5.1); Sodium 138 mmol/L (137-145); Total Bilirubin 0.7 mg/dL (0.2-1.3)
[2018-01-05 23:29] LABS: Partial Thromboplastin Time 25.6 sec (22.0-30.0); Prothrombin Time 10.1 sec (9.0-12.0)
--- NOTE | 2018-01-06 00:21 | US ---
EXAMINATION TYPE: US transvaginal DATE OF EXAM: 01/05/2018 COMPARISON: NONE CLINICAL HISTORY: Pain. Had D/C x 5 days ago bleeding heavy. TECHNIQUE: Transvaginal (TV). EXAM MEASUREMENTS: Uterus: 8.6 x 4.3 x 5.6 cm Endometrial Stripe: 0.74 cm Right Ovary: 3.0 x 1.9 x 2.1 cm Left Ovary: 2.2 x 1.6 x 1.8 cm 1. Uterus: Anteverted wnl 2. Endometrium: wnl 3. Right Ovary: wnl 4. Left Ovary: wnl Spectral, color and waveform doppler imaging shows good arterial and venous flow within the ovaries ; there is no evidence for ovarian torsion. 5. Bilateral Adnexa: wnl 6. Posterior cul-de-sac: wnl IMPRESSION: Normal transvaginal pelvic sonogram. No evidence of ovarian torsion. Normal uterus and en dometrium.
--- NOTE | 2018-01-07 09:52 | CDI ---
Documentation Clarification OP Dear Carlita Amor PAC Please provide thumb laceration repair length. Thank you, Beckie Monteiro Room Server If you have any questions, please contact Hardwood Faller at [phone] [facility]
== END 2018-01-06 01:12 | disposition home or self-care (01) ==
LOC: EC 20:37
DX: N93.8 Other specified abnormal uterine and vaginal bleeding (principal); Z88.2 Allergy status to sulfonamides; Z86.14 Personal history of Methicillin resistant Staphylococcus aureus infection
CPT/HCPCS: 99284; 96374; 96361; 36415; 80053; 85025; 85610; 85730; 81001; 93975; 76830; J1885

== ENCOUNTER 2019-04-27 19:04 | Emergency (ER) | payer OTHER ==
[2019-04-27 19:13] VITALS: PULSE 109
--- NOTE | 2019-04-27 19:36 | ED ---
General Adult HPI - General Chief complaint: Nausea/Vomiting/Diarrhea Stated complaint: heroin detox 16weeks pg Time Seen by Provider: 04/27/19 19:20 Source: patient, police, RN notes reviewed Mode of arrival: ambulatory Limitations: no limitations - History of Present Illness Initial comments: Patient is a pleasant 24-year-old female presenting [facility] officer. Patient states she is withdrawing from heroin. Last use was around 32 hours ago. Patient injects daily. Patient states she also overdosed a week or so ago and had to be given Narcan. Patient states she has minimal nausea. Patient states he feels hot and cold and somewhat achy. Patient denies any pelvic pain or vaginal bleeding. Patient is . - Related Data Home Medications Medication Instructions Recorded Confirmed Albuterol Inhaler [Ventolin Hfa 2 puff INHALATION RT-Q6H PRN 12/29/17 01/05/18 Inhaler] Ibuprofen [Motrin Ib] 200 mg PO Q4HR PRN 01/05/18 01/05/18 Previous Rx's Medication Instructions Recorded Acetaminophen-Codeine 300-30mg 1 tab PO Q6H PRN #12 tablet 01/06/18 [Tylenol #3] Allergies Allergy/AdvReac Type Severity Reaction Status Date / Time Sulfa (Sulfonamide Allergy Rash/Hives Verified 04/27/19 19:12 Antibiotics) Review of Systems ROS Statement: Those systems with pertinent positive or pertinent negative responses have been documented in the HPI. ROS Other: All systems not noted in ROS Statement are negative. Constitutional: Denies: fever Eyes: Denies: eye pain ENT: Denies: ear pain Respiratory: Denies: cough Cardiovascular: Denies: chest pain Endocrine: Denies: fatigue Gastrointestinal: Reports: nausea. Denies: abdominal pain, vomiting Genitourinary: Denies: dysuria Musculoskeletal: Denies: back pain Skin: Denies: rash Neurological: Denies: weakness Past Medical History Past Medical History: No Reported History History of Any Multi-Drug Resistant Organisms: MRSA Date of last positivie culture/infection: 2016 MDRO Source:: left side abscess Past Surgical History: No Surgical Hx Reported Additional Past Surgical History / Comment(s): D and C Past Psychological History: Anxiety, Bipolar, Depression Smoking Status: Never smoker Past Alcohol Use History: Occasional Past Drug Use History: Heroin, IV Drug Use, Marijuana, Methamphetamine General Exam Limitations: no limitations General appearance: alert, in no apparent distress Head exam: Present: normocephalic Eye exam: Present: normal appearance Neck exam: Present: normal inspection Respiratory exam: Present: normal lung sounds bilaterally Cardiovascular Exam: Present: regular rate, normal rhythm GI/Abdominal exam: Present: soft. Absent: distended, tenderness Extremities exam: Present: normal inspection Neurological exam: Present: alert Psychiatric exam: Present: normal affect, normal mood Skin exam: Present: other (Tract castellon right antecubital fossa) Course Vital Signs 04/27/19 19:09 Temperature 99.2 F Pulse Rate 109 H Respiratory 19 Rate Blood Pressure 109/73 O2 Sat by Pulse 99 Oximetry - Reevaluation(s) Reevaluation #1: 04/27/19 19:38 Case was discussed with Dr. Morrison who is agreeable with plan. Medical Decision Making - Medical Decision Making Patient reevaluated and resting comfortably in bed. Patient updated on results and follow-up. Disposition Clinical Impression: Heroin withdrawal, Disposition: ADMITTED IP TO THIS HOSP Instructions (If sedation given, give patient instructions): Acute Nausea and Vomiting (ED), (ED), Opioid Withdrawal (ED) Additional Instructions: Please follow-up with [facility]. vitamins. Return for uncontrolled vomiting or concerns for dehydration, pelvic pain, vaginal bleeding, worsening symptoms or other concerns. Do not use heroin or other drugs. Is patient prescribed a controlled substance at d/c from ED?: No Referrals: Bryan Magdaleno MD [Primary Care Provider] - 1-2 days Time of Disposition: 20:07
[2019-04-27 20:17] VITALS: BP 113/65; RESP 18; TEMP 97.9
== END 2019-04-27 20:16 | disposition other institution (70) ==
LOC: EC 19:04
DX: O99.322 Drug use complicating pregnancy, second trimester (principal); F11.23 Opioid dependence with withdrawal; Z88.2 Allergy status to sulfonamides; Z86.14 Personal history of Methicillin resistant Staphylococcus aureus infection; Z3A.16 16 weeks gestation of pregnancy
CPT/HCPCS: 99284

== ENCOUNTER 2019-05-06 14:56 | Emergency (ER) | payer OTHER ==
--- NOTE | 2019-05-06 15:58 | ED ---
Female Urogenital HPI - General Chief complaint: Vaginal Bleeding Stated complaint: 15 wks bleeding Time Seen by Provider: 05/06/19 15:11 Source: patient, police Mode of arrival: ambulatory Limitations: no limitations - History of Present Illness Initial comments: Patient is a 24-year-old female presenting to the emergency Department with complaints of vaginal discharge 2 days. Patient is currently 15 weeks . Patient is . Patient is currently incarcerated. Patient is currently on methadone for heroin addiction. Patient states that her last sexual partner told her that he tested positive for Trichomonas. Patient states she is having multiple pads full of green to yellow discharge for the past few days. Patient denies any vaginal bleeding. She does admit to some very mild lower abdominal cramping but no severe pains. Patient has yet to see her PATIENT REGISTRATION SPECIALIST. Patient is set to see Dr. Mckeon as soon as the office calls her back. Patient denies fever, chills, vomiting, diarrhea. Patient has no other complaints at this time. Upon arrival to the ER, vital signs are stable. Last Menstrual Period: 01/24/19 - Related Data Home Medications Medication Instructions Recorded Confirmed Albuterol Inhaler [Ventolin Hfa 2 puff INHALATION RT-Q6H PRN 12/29/17 01/05/18 Inhaler] Ibuprofen [Motrin Ib] 200 mg PO Q4HR PRN 01/05/18 01/05/18 Previous Rx's Medication Instructions Recorded Acetaminophen-Codeine 300-30mg 1 tab PO Q6H PRN #12 tablet 01/06/18 [Tylenol #3] Allergies Allergy/AdvReac Type Severity Reaction Status Date / Time Sulfa (Sulfonamide Allergy Rash/Hives Verified 05/06/19 15:01 Antibiotics) Review of Systems ROS Statement: Those systems with pertinent positive or pertinent negative responses have been documented in the HPI. ROS Other: All systems not noted in ROS Statement are negative. Past Medical History Past Medical History: No Reported History History of Any Multi-Drug Resistant Organisms: MRSA Date of last positivie culture/infection: 2015 MDRO Source:: left side abscess Past Surgical History: No Surgical Hx Reported Additional Past Surgical History / Comment(s): D and C Past Psychological History: Anxiety, Bipolar, Depression Smoking Status: Never smoker Past Alcohol Use History: Occasional Past Drug Use History: Heroin, IV Drug Use, Marijuana, Methamphetamine General Exam - General Exam Comments Initial Comments: GENERAL: Well-appearing, well-nourished and in no acute distress. HEAD: Atraumatic, normocephalic. EYES: Pupils equal round and reactive to light, extraocular movements intact, sclera anicteric, conjunctiva are normal. ENT: Nares patent, oropharynx clear without exudates. Moist mucous membranes. NECK: Normal range of motion, supple without lymphadenopathy or JVD. LUNGS: Breath sounds clear to auscultation bilaterally and equal. No wheezes rales or rhonchi. HEART: Regular rate and rhythm without murmurs, rubs or gallops. ABDOMEN: Soft, nontender, normoactive bowel sounds. No guarding, no rebound. No masses appreciated. EXTREMITIES: Normal range of motion, no pitting or edema. No clubbing or cyanosis. SKIN: Warm, Dry, normal turgor, no rashes or lesions noted. Limitations: no limitations External exam: Present: normal external exam. Absent: lesions Speculum exam: Present: cervical discharge (Green to yellow colored discharge). Absent: vaginal bleeding, foreign body By manual exam: Present: normal by manual exam Course Vital Signs 05/06/19 15:01 Temperature 98.5 F Pulse Rate 100 Respiratory 20 Rate Blood Pressure 108/72 O2 Sat by Pulse 100 Oximetry Medical Decision Making - Medical Decision Making Patient is a 24-year-old female currently 15 weeks complaining of green to yellow vaginal discharge for 2 days. No vaginal bleeding or abdominal pain. Vital signs stable. heart tones are 160. Urine has white blood cells and red blood cells. Trichomonas is positive. Patient was treated for Trichomonas, gonorrhea, chlamydia. Patient was given Rocephin, azithromycin as well as Flagyl before discharge. Patient will follow up with PATIENT REGISTRATION SPECIALIST as discussed. Patient will contact partner for treatment. Patient is agreement with this plan of care. Return parameters were discussed with the patient she verbalized understanding. Patient is stable for discharge at this time. Case discussed with Dr. Tirado. - Lab Data Lab Results 05/06/19 05/06/19 Range/Units 15:30 15:30 Urine Color Yellow Urine Appearance Cloudy H (Clear) Urine pH 7.0 (5.0-8.0) Ur Specific [place] 1.020 (1.001-1.035) Urine Protein 1+ H (Negative) Urine Glucose (UA) Negative (Negative) Urine Ketones Negative (Negative) Urine Blood Negative (Negative) Urine Nitrite Negative (Negative) Urine Bilirubin Negative (Negative) Urine Urobilinogen <2.0 (<2.0) mg/dL Ur Leukocyte Esterase Large H (Negative) Urine RBC 80 H (0-5) /hpf Urine WBC 115 H (0-5) /hpf Ur Squamous Epith Cells 4 (0-4) /hpf Urine Bacteria Rare H (None) /hpf Urine Mucus Rare H (None) /hpf Urine Yeast (Budding) Occasional H (None) /hpf Trichomonas Ag (Rapid) Positive H (Negative) Disposition Clinical Impression: Trichomonas vaginalis infection, Disposition: HOME SELF-CARE Condition: Stable Instructions (If sedation given, give patient instructions): Trichomoniasis (ED) Additional Instructions: Please return to the Emergency Department if symptoms worsen or any other concerns. Follow-up with PATIENT REGISTRATION SPECIALIST as discussed. Partner must be contacted and treated as well. Is patient prescribed a controlled substance at d/c from ED?: No Referrals: Bryan Magdaleno MD [Primary Care Provider] - 1-2 days
[2019-05-06 16:34] LABS: Appearance,Urine Cloudy (Clear); Bacteria,Urine Rare /hpf; Bilirubin,Urine Negative (Negative); Blood,Urine Negative (Negative); Budding Yeast,Urine Occasional /hpf; Color,Urine Yellow; Glucose,Urine (UA) Negative (Negative); Ketones,Urine Negative (Negative); Leukocyte Esterase,Urine Large (Negative); Mucus,Urine Rare /hpf; Nitrite,Urine Negative (Negative); Protein,Urine 1+ (Negative); RBC,Urine 80 /hpf (0-5); Squamous Epithelial Cell,Urine 4 /hpf (0-4); Urobilinogen,Urine <2.0 mg/dL (<2.0)
[2019-05-06] MEDS ORDERED: AZITHROMYCIN 250 MG TAB PO STA (16:37)
[2019-05-06] MEDS ORDERED: metroNIDAZOLE 500 MG TAB PO STA (16:37)
[2019-05-06] MEDS ORDERED: cefTRIAXone 250 MG VIAL IM STA (16:37)
[2019-05-06 17:20] VITALS: BP 124/87; PULSE 95; RESP 18; TEMP 98.2
== END 2019-05-06 17:18 | disposition home or self-care (01) ==
LOC: EC 14:56
DX: O98.312 Other infections with a predominantly sexual mode of transmission complicating pregnancy, second trimester (principal); A59.01 Trichomonal vulvovaginitis; O99.322 Drug use complicating pregnancy, second trimester; F11.20 Opioid dependence, uncomplicated; Z3A.15 15 weeks gestation of pregnancy; Z88.2 Allergy status to sulfonamides; Z86.14 Personal history of Methicillin resistant Staphylococcus aureus infection
CPT/HCPCS: 81001; 87070; 87086; 87491; 87591; 87808; 96372; 99284

== ENCOUNTER 2019-07-01 20:23 | Outpatient (CLI) | payer OTHER ==
[2019-07-01 21:27] VITALS: BP 115/63; PULSE 97; RESP 16; TEMP 98.2
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
== END 2019-07-01 21:20 | disposition home or self-care (01) ==
LOC: FBPOP 20:23
PROVIDERS: ATTEND Obstetrics & Gynecology
DX: O26.92 Pregnancy related conditions, unspecified, second trimester (principal); Z3A.22 22 weeks gestation of pregnancy
CPT/HCPCS: 99213

== ENCOUNTER 2019-09-06 21:24 | Outpatient (CLI) | payer OTHER ==
[2019-09-06 23:06] VITALS: BP 127/79; PULSE 92; RESP 16; TEMP 98.1
--- NOTE | 2019-09-07 08:06 | P.MSEPDOC ---
Presenting Problems - Arrival Data Date of Arrival on Unit: 09/06/19 Time of Arrival on Unit: 21:24 Mode of Transport: Ambulatory - Complaint OB-Reason for Admission/Chief Complaint: Possible Onset of Labor Medical History - Information : 3 Para: 1 Term: 1 : 0 Abortions: Spontaneous or Elective: 1 Number of Living Children: 1 - Gestational Age Gestational Age by BALWINDER (wks/days): 21 Weeks and 4 Days - History Complications: Smoker, Hx. Substance Abuse, Other Comment: Cholestasis, Heroin and Methadone use until 04-26-19 Review of Systems - Review of Systems Constitutional: No problems Breast: No problems ENT: No problems Cardiovascular: No problems Respiratory: No problems Gastrointestinal: No problems Genitourinary: No problems Musculoskeletal: No problems Neurological: No problems Skin: No problems Vital Signs - Temperature Temperature: 98.1 F Temperature Source: Temporal Artery Scan - Pulse Right Pulse Rate: 92 Pulse Assessment Method: Pulse Oximetry - Respirations Respiratory Rate: 16 Oxygen Delivery Method: Room Air O2 Sat by Pulse Oximetry: 98 - Blood Pressure Right Arm Blood Pressure: 127/79 Blood Pressure Mean: 95 Blood Pressure Source: Automatic Cuff Medical Screen Scoring (Pre) - Cervical Exam Dilation: 0 cm = 0 Membranes: Intact - Uterine Contractions Frequency: N/A Duration: N/A Intensity: N/A - Maternal Vital Signs Maternal Temperature: N/A Maternal Blood Pressure: N/A Signs of Preeclampsia: N/A Maternal Respirations: N/A - Assessment - Baby A Baseline FHR: 130 Heart Rate - NICHD Category: Category I (Normal) = 0 NST: Reactive Position: N/A Station: N/A - Total Score - Baby A Total Score - Baby A: 0 - Total Score - Baby B Total Score - Baby B: 0 - Total Score - Baby C Total Score - Baby C: 0 - Level of Risk - Baby A Level of Risk - Baby A: Low (0-5) - Level of Risk - Baby B Level of Risk - Baby B: Low (0-5) - Level of Risk - Baby C Level of Risk - Baby C: Low (0-5) Physician Notification (Pre) - Physician Notified Physician Notified Date: 09/06/19 Physician Notified Time: 21:52 New Order Received: Yes - Notification Comment Comment: Discharge home after a full hour of monitoring Disposition - Disposition OB Disposition: Discharge to home Discharge Date: 09/06/19 Discharge Time: 22:45 I agree with the RN Medical Screening Exam: Yes Risk & Benefit of care provided described in d/c instruction: Yes Diagnosis: FALSE LABOR, UNSPECIFIED
== END 2019-09-06 22:45 | disposition home or self-care (01) ==
LOC: FBPOP 21:24
PROVIDERS: ATTEND Obstetrics & Gynecology
DX: O47.9 False labor, unspecified (principal); Z3A.21 21 weeks gestation of pregnancy
CPT/HCPCS: 59025; G0463; 99213

== ENCOUNTER 2020-01-01 21:55 | Emergency (ER) | payer OTHER ==
[2020-01-01 22:07] VITALS: TEMP 98.9
--- NOTE | 2020-01-02 00:06 | US ---
EXAMINATION TYPE: US venous doppler duplex UE LT DATE OF EXAM: 01/01/2020 COMPARISON: NONE CLINICAL HISTORY: iv drug user, concern for dvt, lue swelling. left arm antecubital fossa injection t onight with painful left arm and patient states swelling to her left neck, no h/o dvt SIDE PERFORMED: Left Left Arm: Negative for DVT, cephalic vein in upper arm had internal echoes that did not compress, p robable SVT Soft tissue swelling at antecubital fossa produced 3.2 x 2.6 x 1.7cm complex collection, no vascula rity noted, patient is IV drug user IMPRESSION: There is some superficial vein thrombosis in the cephalic vein. No evidence of deep vein thrombosis. There is complex area in the antecubital fossa that could be blood clot or phlegmon.
[2020-01-02 00:23] LABS: Basophils # (A) 0.1 k/uL (0-0.2); Basophils % (A) 1 %; Eosinophils # (A) 0.1 k/uL (0-0.7); Eosinophils % (A) 2 %; HCT 37.3 % (34.0-46.0); HGB 12.1 gm/dL (11.4-16.0); Lymphocytes # (A) 2.5 k/uL (1.0-4.8); Lymphocytes % (A) 37 %; MCH 28.6 pg (25.0-35.0); MCHC 32.5 g/dL (31.0-37.0); MCV 88.1 fL (80.0-100.0); Mean Platelet Volume 7.5; Monocytes # (A) 0.3 k/uL (0-1.0); Monocytes % (A) 5 %; Neutrophils # (A) 3.7 k/uL (1.3-7.7); Neutrophils % (A) 54 %; Platelet Count 223 k/uL (150-450); RBC 4.24 m/uL (3.80-5.40); RDW 12.9 % (11.5-15.5); WBC 6.9 k/uL (3.8-10.6)
[2020-01-02 00:29] LABS: ALT 40 U/L (4-34); AST 30 U/L (14-36); African American GFR (CKD) >90 (>60 ml/min/1.73 sqM); Alkaline Phosphatase 93 U/L (38-126); Anion Gap 8 mmol/L; Blood Urea Nitrogen 8 mg/dL (7-17); Calcium 9.3 mg/dL (8.4-10.2); Carbon Dioxide 26 mmol/L (22-30); Chloride 104 mmol/L (98-107); Glucose 88 mg/dL (74-99); Non-African American GFR(CKD) >90 (>60 ml/min/1.73 sqM); Potassium 3.8 mmol/L (3.5-5.1); Sodium 138 mmol/L (137-145); Total Bilirubin 0.5 mg/dL (0.2-1.3); Total Protein 7.8 g/dL (6.3-8.2)
--- NOTE | 2020-01-02 00:41 | ED ---
Extremity Problem HPI - General Chief complaint: Extremity Problem,Nontraumatic Stated complaint: Difficulty Swallowing Time Seen by Provider: 01/01/20 22:27 Source: patient Mode of arrival: ambulatory Limitations: no limitations - History of Present Illness Initial comments: Patient is 24-year-old female with history of heroin abuse. Presenting to the emergency Department with the chief complaint of arm swelling. Patient states she is an IV drug user and typically administers IV heroin in bilateral upper extremities. Patient states the last time she administered any IV drugs was earlier today. Patient states over the last few days she has developed some swelling in bilateral upper extremities, but mostly located in the left upper arm. Patient states there is some tenderness in the left antecubital region. She also reports some swelling along the neck. She states she did attempt to inject into the neck as well. Denies any fevers or chills. Does report history of MRSA. Denies any pain of the neck with left and right rotation. Denies any headaches. She denies chest pain or shortness of breath. - Related Data Home Medications Medication Instructions Recorded Confirmed Pnv No.95/Ferrous Fum/Folic AC 1 each PO DAILY 09/06/19 09/06/19 [ Multivitamin Tablet] RX: ursodioL [Ursodiol] 300 mg PO TID 09/06/19 09/06/19 Previous Rx's Medication Instructions Recorded RX: Doxycycline Monohydrate 100 mg PO Q12HR #20 cap 01/02/20 [Monodox] Allergies Allergy/AdvReac Type Severity Reaction Status Date / Time Sulfa (Sulfonamide Allergy Rash/Hives Verified 01/01/20 22:07 Antibiotics) Review of Systems ROS Statement: Those systems with pertinent positive or pertinent negative responses have been documented in the HPI. ROS Other: All systems not noted in ROS Statement are negative. Past Medical History Past Medical History: No Reported History History of Any Multi-Drug Resistant Organisms: MRSA Date of last positivie culture/infection: 2015 MDRO Source:: left side abscess Past Surgical History: No Surgical Hx Reported Additional Past Surgical History / Comment(s): D and C Past Psychological History: Anxiety, Bipolar, Depression Past Alcohol Use History: Occasional Past Drug Use History: Heroin, IV Drug Use, Marijuana, Methamphetamine General Exam Limitations: no limitations General appearance: alert, in no apparent distress Head exam: Present: atraumatic, normocephalic, normal inspection Eye exam: Present: normal appearance, PERRL, EOMI Pupils: Present: normal accommodation ENT exam: Present: normal exam, normal oropharynx, mucous membranes moist, TM's normal bilaterally, normal external ear exam Neck exam: Present: normal inspection (There appears to be region on the left side of her neck that is slightly ecchymotic and nontender. Patient did inject in that region several days ago. No overlying cellulitis skin changes there.), full ROM. Absent: tenderness Respiratory exam: Present: normal lung sounds bilaterally. Absent: respiratory distress, wheezes, rales Cardiovascular Exam: Present: regular rate, normal rhythm, normal heart sounds Extremities exam: Present: full ROM, normal capillary refill, other (+2 ulnar and radial pulses bilaterally.). Absent: normal inspection (Multiple injection sites in bilateral upper extremities. There is a region of ecchymosis and swelling in the left antecubital region. No signs of overlying cellulitis skin changes or any discharge. No signs of an abscess.), tenderness, pedal edema, joint swelling, calf tenderness Back exam: Present: normal inspection, full ROM. Absent: tenderness Neurological exam: Present: alert, oriented X3, CN II-XII intact, normal gait Psychiatric exam: Present: normal affect, normal mood Skin exam: Present: warm, dry, intact, normal color Course Vital Signs 01/01/20 01/02/20 22:01 01:48 Temperature 98.9 F Pulse Rate 106 H 82 Respiratory 20 18 Rate Blood Pressure 135/86 124/84 O2 Sat by Pulse 98 Oximetry Medical Decision Making - Medical Decision Making Patient is 24-year-old female presenting to emergency Department with a chief complaint of arm swelling. Physical examination there is no signs of overlying skin changes ago she appears to have some tenderness in the left antecubital region. CBC reveals no signs of leukocytosis. No elevation lactic acid. CMP is unremarkable. Ultrasound of her left upper extremity reveals multiple superficial venous her boluses in the cephalic vein. No signs of DVT. There appears to be a regional complex of blood or phlegmon in the left antecubital region according to the ultrasound. Clinically this does not to be a phlegmon because there are no infection-like changes visible. Additionally, no leukocytosis. Patient afebrile. Considering the patient has history of MRSA and is an IV drug user. Patient will be started on doxycycline because she is ALLERGIC to Bactrim. She was advised to follow-up with primary care physician. Return parameters were thoroughly discussed with patient was understanding and agreeable.Dr. Wise also examined the patient and his agreement with the treatment plan. Case discussed with physician. - Lab Data Result diagrams: 01/01/20 23:59 01/01/20 23:59 Lab Results 01/01/20 01/01/20 01/01/20 Range/Units 23:59 23:59 23:59 WBC 6.9 (3.8-10.6) k/uL RBC 4.24 (3.80-5.40) m/uL Hgb 12.1 (11.4-16.0) gm/dL Hct 37.3 (34.0-46.0) % MCV 88.1 (80.0-100.0) fL MCH 28.6 (25.0-35.0) pg MCHC 32.5 (31.0-37.0) g/dL RDW 12.9 (11.5-15.5) % Plt Count 223 (150-450) k/uL Neutrophils % 54 % Lymphocytes % 37 % Monocytes % 5 % Eosinophils % 2 % Basophils % 1 % Neutrophils # 3.7 (1.3-7.7) k/uL Lymphocytes # 2.5 (1.0-4.8) k/uL Monocytes # 0.3 (0-1.0) k/uL Eosinophils # 0.1 (0-0.7) k/uL Basophils # 0.1 (0-0.2) k/uL Sodium 138 (137-145) mmol/L Potassium 3.8 (3.5-5.1) mmol/L Chloride 104 (98-107) mmol/L Carbon Dioxide 26 (22-30) mmol/L Anion Gap 8 mmol/L BUN 8 (7-17) mg/dL Creatinine 0.46 L (0.52-1.04) mg/dL Est GFR (CKD-EPI)AfAm >90 (>60 ml/min/1.73 sqM) Est GFR (CKD-EPI)NonAf >90 (>60 ml/min/1.73 sqM) Glucose 88 (74-99) mg/dL Plasma Lactic Acid Jay 0.5 L (0.7-2.0) mmol/L Calcium 9.3 (8.4-10.2) mg/dL Total Bilirubin 0.5 (0.2-1.3) mg/dL AST 30 (14-36) U/L ALT 40 H (4-34) U/L Alkaline Phosphatase 93 (38-126) U/L Total Protein 7.8 (6.3-8.2) g/dL Albumin 4.0 (3.5-5.0) g/dL Disposition Clinical Impression: Superficial venous thrombosis of left upper extremity Disposition: HOME SELF-CARE Condition: Stable Instructions (If sedation given, give patient instructions): Superficial Thrombophlebitis (ED) Additional Instructions: Take prescribed medication as directed. Apply warm compresses. Return to emergency department if symptoms worsen. Follow up with her primary care physician. Prescriptions: RX: Doxycycline Monohydrate [Monodox] 100 mg PO Q12HR #20 cap Is patient prescribed a controlled substance at d/c from ED?: No Referrals: None,Stated [Primary Care Provider] - 1-2 days Time of Disposition: 01:37
[2020-01-02 01:49] VITALS: BP 124/84; PULSE 82; RESP 18
== END 2020-01-02 01:49 | disposition home or self-care (01) ==
LOC: EC 21:55
DX: I82.612 Acute embolism and thrombosis of superficial veins of left upper extremity (principal); S10.93XA Contusion of unspecified part of neck, initial encounter; R22.31 Localized swelling, mass and lump, right upper limb; Z88.2 Allergy status to sulfonamides; Z86.14 Personal history of Methicillin resistant Staphylococcus aureus infection
CPT/HCPCS: 36415; 80053; 83605; 85025; 87040; 99284

== ENCOUNTER 2020-10-27 11:29 | Emergency (ER) | payer OTHER ==
[2020-10-27 11:33] VITALS: BP 103/68; PULSE 88; RESP 16; TEMP 97.6
[2020-10-27] MEDS ORDERED: methylPREDNISolone SOD SUCCI 125 MG/2 ML VIAL IM ONE (11:53)
--- NOTE | 2020-10-27 11:54 | ED ---
Skin/Abscess/FB HPI - General Chief complaint: Skin/Abscess/Foreign Body Stated complaint: Insect bite Time Seen by Provider: 10/27/20 11:39 Source: patient Mode of arrival: ambulatory Limitations: no limitations - History of Present Illness Initial comments: Patient is a 25-year-old female presenting to the emergency Department with complaints of multiple mosquito bites on her legs that happened last night. She states her cat got out of her house and she went outside looking for her cat, in the meantime she got bit by a bunch mosquitoes. She states last night she tried Benadryl and again this morning but they're still itchy. She also tried calamine lotion but they continue to be really itchy. She has no ALLERGIES. Any fevers or chills she has no further complaints. - Related Data Home Medications Medication Instructions Recorded Confirmed Pnv No.95/Ferrous Fum/Folic AC 1 each PO DAILY 09/06/19 09/06/19 [ Multivitamin Tablet] ursodioL [Ursodiol] 300 mg PO TID 09/06/19 09/06/19 Previous Rx's Medication Instructions Recorded Doxycycline Monohydrate [Monodox] 100 mg PO Q12HR #20 cap 01/02/20 Allergies Allergy/AdvReac Type Severity Reaction Status Date / Time Sulfa (Sulfonamide Allergy Rash/Hives Verified 10/27/20 11:33 Antibiotics) Review of Systems ROS Statement: Those systems with pertinent positive or pertinent negative responses have been documented in the HPI. ROS Other: All systems not noted in ROS Statement are negative. Past Medical History Past Medical History: Seizure Disorder History of Any Multi-Drug Resistant Organisms: MRSA Date of last positivie culture/infection: 2015 MDRO Source:: left side abscess Past Surgical History: No Surgical Hx Reported Additional Past Surgical History / Comment(s): D and C Past Psychological History: Anxiety, Bipolar, Depression Smoking Status: Current every day smoker Past Alcohol Use History: Occasional Past Drug Use History: Heroin, IV Drug Use, Marijuana, Methamphetamine General Exam - General Exam Comments Initial Comments: GENERAL: Patient is well-developed and well-nourished. Patient is nontoxic and in no acute distress. HEAD: Atraumatic, normocephalic. EYES: Pupils equal round and reactive to light, extraocular movements intact, sclera anicteric, conjunctiva are normal. Eyelids were unremarkable. ENT: Nares patent, oropharynx clear without exudates. Moist mucous membranes. NECK: Normal range of motion, supple without lymphadenopathy or JVD. LUNGS: Unlabored respirations. Breath sounds clear to auscultation bilaterally and equal. No wheezes rales or rhonchi. HEART: Regular rate and rhythm without murmurs, rubs or gallops. ABDOMEN: Soft, nontender, normoactive bowel sounds. No guarding, no rebound. No masses appreciated. : Deferred MUSCULOSKELETAL: Normal extremities with adequate strength and normal range of motion, no pitting or edema. No clubbing or cyanosis. NEUROLOGICAL: Patient is alert and oriented x 3. Symmetrical smile. Normal speech, normal gait. PSYCH: Normal mood, normal affect. SKIN: Warm, Dry, normal turgor. Patient has many mosquito bites on her bilateral lower legs, no spreading erythema, no signs of infection. Limitations: no limitations Course Vital Signs 10/27/20 11:30 Temperature 97.6 F Pulse Rate 88 Respiratory 16 Rate Blood Pressure 103/68 O2 Sat by Pulse 100 Oximetry Medical Decision Making - Medical Decision Making Patient is a 25-year-old female here with multiple mosquito bites on bilateral lower legs that happened last night. She tried Benadryl, they're still itchy and irritating. Patient will be given a dose of steroids today, I recommended continuing with Benadryl cream or calamine lotion on her legs, she can also take oral Benadryl tonight for the irritation. Continue to moisturize her legs. She is stable for discharge and she is in agreement with this plan of care. Disposition Clinical Impression: Mosquito bite Disposition: HOME SELF-CARE Condition: Stable Instructions (If sedation given, give patient instructions): Insect Bite or Sting (ED) Additional Instructions: Please return to the Emergency Department if symptoms worsen or any other concerns. Continue with Benadryl at nighttime for irritation, also try Benadryl cream on the legs as well as calamine lotion. Is patient prescribed a controlled substance at d/c from ED?: No Referrals: Zafar Nelson MD [Primary Care Provider] - 1-2 days Time of Disposition: 11:53
== END 2020-10-27 12:01 | disposition home or self-care (01) ==
LOC: EC 11:29
DX: S80.862A Insect bite (nonvenomous), left lower leg, initial encounter (principal); S80.861A Insect bite (nonvenomous), right lower leg, initial encounter; F17.200 Nicotine dependence, unspecified, uncomplicated; W57.XXXA Bitten or stung by nonvenomous insect and other nonvenomous arthropods, initial encounter
CPT/HCPCS: 99282; 96372; J2930

== ENCOUNTER 2020-11-19 05:33 | Observation (INO) | payer OTHER ==
[2020-11-19] MEDS ORDERED: ACETAMINOPHEN TAB 500 MG TAB PO STA (06:13)
[2020-11-19] MEDS ORDERED: IBUPROFEN 600 MG TAB PO STA (06:13)
--- NOTE | 2020-11-19 06:17 | ED ---
General Adult HPI - General Chief complaint: Fever Stated complaint: Fever Time Seen by Provider: 11/19/20 06:00 Source: patient Mode of arrival: ambulatory Limitations: no limitations - History of Present Illness Initial comments: Patient is a 25-year-old female with history of polysubstance abuse including IV heroin, MRSA presents to the emergency room for a chief complaint of fever. Patient states a couple hours ago she noticed she developed a fever. States her arms and legs hurt and she has a headache. Patient denies any symptoms associated with this fever such as cough congestion sore throat. Patient does admit to currently using IV drugs. She reports she mostly uses these on her arms and neck. She denies a chance of . She denies dysuria.Patient has no other complaints at this time including shortness of breath, chest pain, abdominal pain, nausea or vomiting, headache, or visual changes. - Related Data Home Medications Medication Instructions Recorded Confirmed lamoTRIgine [LaMICtal] 50 mg PO BID 11/19/20 11/19/20 Allergies Allergy/AdvReac Type Severity Reaction Status Date / Time Sulfa (Sulfonamide Allergy Rash/Hives Verified 11/19/20 07:47 Antibiotics) Review of Systems ROS Statement: Those systems with pertinent positive or pertinent negative responses have been documented in the HPI. ROS Other: All systems not noted in ROS Statement are negative. Past Medical History Past Medical History: Seizure Disorder History of Any Multi-Drug Resistant Organisms: MRSA Date of last positivie culture/infection: 2015 MDRO Source:: left side abscess Past Surgical History: No Surgical Hx Reported Additional Past Surgical History / Comment(s): D and C Past Psychological History: Anxiety, Bipolar, Depression Smoking Status: Current every day smoker Past Alcohol Use History: Occasional Past Drug Use History: Heroin, IV Drug Use, Marijuana, Methamphetamine General Exam Limitations: no limitations General appearance: alert, in no apparent distress Head exam: Present: atraumatic, normocephalic, normal inspection Eye exam: Present: normal appearance, PERRL, EOMI. Absent: scleral icterus, c onjunctival injection, periorbital swelling ENT exam: Present: normal exam, mucous membranes moist Neck exam: Present: normal inspection, full ROM. Absent: tenderness, meningismus, lymphadenopathy Respiratory exam: Present: normal lung sounds bilaterally. Absent: respiratory distress, wheezes, rales, rhonchi, stridor Cardiovascular Exam: Present: regular rate, normal rhythm, normal heart sounds. Absent: systolic murmur, diastolic murmur, rubs, gallop, clicks GI/Abdominal exam: Present: soft, normal bowel sounds. Absent: distended, tenderness, guarding, rebound, rigid Neurological exam: Present: alert Skin exam: Present: warm, dry, intact, normal color. Absent: rash Course Vital Signs 11/19/20 11/19/20 05:36 07:33 Temperature 101.1 F H 100.2 F H Pulse Rate 148 H 128 H Respiratory 18 16 Rate Blood Pressure 136/91 111/66 O2 Sat by Pulse 99 97 Oximetry Medical Decision Making - Medical Decision Making Vitals are stable however patient does have a fever while in the emergency room. Her evaluation was initiated which was unremarkable. CBC shows a normal white count. CMP unremarkable. Lactic acid 0.8. Urinalysis and hCG are negative. Coronavirus and influenza negative. Chest x-ray negative. Patient does have a history of MRSA. Given current IV drug abuse status patient will be admitted to the hospital. Case discussed with Dr. Santiago does not who does accept the admission and requests pt be admitted with vancomycin initiated. - Lab Data Result diagrams: 11/19/20 06:21 11/19/20 06:21 Lab Results 11/19/20 11/19/20 11/19/20 Range/Units 06:21 06:21 06:21 WBC 6.7 (3.8-10.6) k/uL RBC 4.12 (3.80-5.40) m/uL Hgb 12.2 (11.4-16.0) gm/dL Hct 34.8 (34.0-46.0) % MCV 84.4 (80.0-100.0) fL MCH 29.5 (25.0-35.0) pg MCHC 35.0 (31.0-37.0) g/dL RDW 13.1 (11.5-15.5) % Plt Count 190 (150-450) k/uL MPV 7.1 Neutrophils % 89 % Lymphocytes % 8 % Monocytes % 2 % Eosinophils % 1 % Basophils % 0 % Neutrophils # 5.9 (1.3-7.7) k/uL Lymphocytes # 0.5 L (1.0-4.8) k/uL Monocytes # 0.2 (0-1.0) k/uL Eosinophils # 0.1 (0-0.7) k/uL Basophils # 0.0 (0-0.2) k/uL PT 10.9 (9.0-12.0) sec INR 1.0 (<1.2) APTT 28.9 (22.0-30.0) sec Sodium (137-145) mmol/L Potassium (3.5-5.1) mmol/L Chloride (98-107) mmol/L Carbon Dioxide (22-30) mmol/L Anion Gap mmol/L BUN (7-17) mg/dL Creatinine (0.52-1.04) mg/dL Est GFR (CKD-EPI)AfAm (>60 ml/min/1.73 sqM) Est GFR (CKD-EPI)NonAf (>60 ml/min/1.73 sqM) Glucose (74-99) mg/dL Plasma Lactic Acid Jay (0.7-2.0) mmol/L Calcium (8.4-10.2) mg/dL Total Bilirubin (0.2-1.3) mg/dL AST (14-36) U/L ALT (4-34) U/L Alkaline Phosphatase (38-126) U/L Total Protein (6.3-8.2) g/dL Albumin (3.5-5.0) g/dL Urine Color Light Yellow Urine Appearance Clear (Clear) Urine pH 5.5 (5.0-8.0) Ur Specific Tanner 1.015 (1.001-1.035) Urine Protein Negative (Negative) Urine Glucose (UA) Negative (Negative) Urine Ketones Negative (Negative) Urine Blood Negative (Negative) Urine Nitrite Negative (Negative) Urine Bilirubin Negative (Negative) Urine Urobilinogen <2.0 (<2.0) mg/dL Ur Leukocyte Esterase Negative (Negative) Urine HCG, Qual (Not Detectd) Coronavirus (PCR) (Not Detectd) Influenza Type A RNA (Not Detectd) Influenza Type B (PCR) (Not Detectd) 11/19/20 11/19/20 11/19/20 Range/Units 06:21 06:21 06:21 WBC (3.8-10.6) k/uL RBC (3.80-5.40) m/uL Hgb (11.4-16.0) gm/dL Hct (34.0-46.0) % MCV (80.0-100.0) fL MCH (25.0-35.0) pg MCHC (31.0-37.0) g/dL RDW (11.5-15.5) % Plt Count (150-450) k/uL MPV Neutrophils % % Lymphocytes % % Monocytes % % Eosinophils % % Basophils % % Neutrophils # (1.3-7.7) k/uL Lymphocytes # (1.0-4.8) k/uL Monocytes # (0-1.0) k/uL Eosinophils # (0-0.7) k/uL Basophils # (0-0.2) k/uL PT (9.0-12.0) sec INR (<1.2) APTT (22.0-30.0) sec Sodium 136 L (137-145) mmol/L Potassium 3.6 (3.5-5.1) mmol/L Chloride 104 (98-107) mmol/L Carbon Dioxide 24 (22-30) mmol/L Anion Gap 8 mmol/L BUN 10 (7-17) mg/dL Creatinine 0.51 L (0.52-1.04) mg/dL Est GFR (CKD-EPI)AfAm >90 (>60 ml/min/1.73 sqM) Est GFR (CKD-EPI)NonAf >90 (>60 ml/min/1.73 sqM) Glucose 88 (74-99) mg/dL Plasma Lactic Acid Jay 0.8 (0.7-2.0) mmol/L Calcium 8.9 (8.4-10.2) mg/dL Total Bilirubin 1.1 (0.2-1.3) mg/dL AST 29 (14-36) U/L ALT 19 (4-34) U/L Alkaline Phosphatase 103 (38-126) U/L Total Protein 7.4 (6.3-8.2) g/dL Albumin 4.1 (3.5-5.0) g/dL Urine Color Urine Appearance (Clear) Urine pH (5.0-8.0) Ur Specific Tanner (1.001-1.035) Urine Protein (Negative) Urine Glucose (UA) (Negative) Urine Ketones (Negative) Urine Blood (Negative) Urine Nitrite (Negative) Urine Bilirubin (Negative) Urine Urobilinogen (<2.0) mg/dL Ur Leukocyte Esterase (Negative) Urine HCG, Qual Not Detected (Not Detectd) Coronavirus (PCR) (Not Detectd) Influenza Type A RNA (Not Detectd) Influenza Type B (PCR) (Not Detectd) 11/19/20 11/19/20 Range/Units 06:21 06:21 WBC (3.8-10.6) k/uL RBC (3.80-5.40) m/uL Hgb (11.4-16.0) gm/dL Hct (34.0-46.0) % MCV (80.0-100.0) fL MCH (25.0-35.0) pg MCHC (31.0-37.0) g/dL RDW (11.5-15.5) % Plt Count (150-450) k/uL MPV Neutrophils % % Lymphocytes % % Monocytes % % Eosinophils % % Basophils % % Neutrophils # (1.3-7.7) k/uL Lymphocytes # (1.0-4.8) k/uL Monocytes # (0-1.0) k/uL Eosinophils # (0-0.7) k/uL Basophils # (0-0.2) k/uL PT (9.0-12.0) sec INR (<1.2) APTT (22.0-30.0) sec Sodium (137-145) mmol/L Potassium (3.5-5.1) mmol/L Chloride (98-107) mmol/L Carbon Dioxide (22-30) mmol/L Anion Gap mmol/L BUN (7-17) mg/dL Creatinine (0.52-1.04) mg/dL Est GFR (CKD-EPI)AfAm (>60 ml/min/1.73 sqM) Est GFR (CKD-EPI)NonAf (>60 ml/min/1.73 sqM) Glucose (74-99) mg/dL Plasma Lactic Acid Jay (0.7-2.0) mmol/L Calcium (8.4-10.2) mg/dL Total Bilirubin (0.2-1.3) mg/dL AST (14-36) U/L ALT (4-34) U/L Alkaline Phosphatase (38-126) U/L Total Protein (6.3-8.2) g/dL Albumin (3.5-5.0) g/dL Urine Color Urine Appearance (Clear) Urine pH (5.0-8.0) Ur Specific Tanner (1.001-1.035) Urine Protein (Negative) Urine Glucose (UA) (Negative) Urine Ketones (Negative) Urine Blood (Negative) Urine Nitrite (Negative) Urine Bilirubin (Negative) Urine Urobilinogen (<2.0) mg/dL Ur Leukocyte Esterase (Negative) Urine HCG, Qual (Not Detectd) Coronavirus (PCR) Not Detected (Not Detectd) Influenza Type A RNA Not Detected (Not Detectd) Influenza Type B (PCR) Not Detected (Not Detectd) Disposition Clinical Impression: Fever of unknown origin, IV drug abuse Disposition: ADMITTED IP TO THIS HOSP Is patient prescribed a controlled substance at d/c from ED?: No Referrals: Zafar Nelson MD [Primary Care Provider] - 1-2 days Time of Disposition: 09:12
--- NOTE | 2020-11-19 07:27 | XR ---
EXAMINATION TYPE: XR chest 2V DATE OF EXAM: 11/19/2020 COMPARISON: Chest x-ray September 11, 2017 HISTORY: Fever and weakness. TECHNIQUE: Frontal and lateral views of the chest are obtained. FINDINGS: There is no focal air space opacity, pleural effusion, or pneumothorax seen. The cardiac silhouette size is within normal limits. The osseous structures are intact. IMPRESSION: No suspicious acute pulmonary process. No significant change from prior.
[2020-11-19] MEDS: SODIUM CHLORIDE 0.9% 500 ML 500 ML IV SCH ×2 (07:39→08:49)
[2020-11-19 07:53] LABS: ALT 19 U/L (4-34); AST 29 U/L (14-36); African American GFR (CKD) >90 (>60 ml/min/1.73 sqM); Albumin 4.1 g/dL (3.5-5.0); Alkaline Phosphatase 103 U/L (38-126); Anion Gap 8 mmol/L; Basophils % (A) 0 %; Blood Urea Nitrogen 10 mg/dL (7-17); Calcium 8.9 mg/dL (8.4-10.2); Carbon Dioxide 24 mmol/L (22-30); Chloride 104 mmol/L (98-107); Eosinophils # (A) 0.1 k/uL (0-0.7); Eosinophils % (A) 1 %; Glucose 88 mg/dL (74-99); HCT 34.8 % (34.0-46.0); HGB 12.2 gm/dL (11.4-16.0); Lymphocytes # (A) 0.5 k/uL (1.0-4.8); Lymphocytes % (A) 8 %; MCH 29.5 pg (25.0-35.0); MCV 84.4 fL (80.0-100.0); Mean Platelet Volume 7.1; Monocytes # (A) 0.2 k/uL (0-1.0); Monocytes % (A) 2 %; Neutrophils # (A) 5.9 k/uL (1.3-7.7); Neutrophils % (A) 89 %; Non-African American GFR(CKD) >90 (>60 ml/min/1.73 sqM); Platelet Count 190 k/uL (150-450); Potassium 3.6 mmol/L (3.5-5.1); RBC 4.12 m/uL (3.80-5.40); RDW 13.1 % (11.5-15.5); Sodium 136 mmol/L (137-145); Total Bilirubin 1.1 mg/dL (0.2-1.3); Total Protein 7.4 g/dL (6.3-8.2); WBC 6.7 k/uL (3.8-10.6)
[2020-11-19 07:58] LABS: Partial Thromboplastin Time 28.9 sec (22.0-30.0); Prothrombin Time 10.9 sec (9.0-12.0)
[2020-11-19 08:40] LABS: Appearance,Urine Clear (Clear); PH, Urine 5.5 (5.0-8.0); Specific Gravity,Urine 1.015 (1.001-1.035)
[2020-11-19 08:41] LABS: Bilirubin,Urine Negative (Negative); Blood,Urine Negative (Negative); Glucose,Urine (UA) Negative (Negative); Ketones,Urine Negative (Negative); Leukocyte Esterase,Urine Negative (Negative); Nitrite,Urine Negative (Negative); Protein,Urine Negative (Negative); Urobilinogen,Urine <2.0 mg/dL (<2.0)
[2020-11-19 08:43] LABS: Color,Urine Light Yellow
[2020-11-19] MEDS ORDERED: VANCOMYCIN IV PER PHARMACY 1 EACH MISC MISCELLANE PRN (09:10)
[2020-11-19] MEDS ORDERED: cefTRIAXone IN SWFI 1,000 MG/10 ML SYRINGE IVP STA (09:11)
[2020-11-19] MEDS ORDERED: ACETAMINOPHEN TAB 325 MG TAB PO PRN (09:13)
[2020-11-19] MEDS ORDERED: NALOXONE 0.4 MG/ML 1 ML VIAL IV PRN (09:13)
[2020-11-19] MEDS ORDERED: IBUPROFEN 400 MG TAB PO PRN (09:13)
[2020-11-19] MEDS ORDERED: SODIUM CHLORIDE 0.9% 1,000 ML IV SCH (09:15)
[2020-11-19] MEDS ORDERED: VANCOMYCIN 1,250 MG in SODIUM CHLORIDE 0.9% 250 ML IVPB ONE (09:45)
[2020-11-19] MEDS ORDERED: lamoTRIgine 25 MG TAB PO SCH (10:00)
[2020-11-19 11:21] VITALS: BP 109/56; PULSE 87; RESP 18; TEMP 98.6
--- NOTE | 2020-11-19 15:52 | P.DS ---
Providers Date of admission: 11/19/20 09:12 Attending physician: Oni Shah Primary care physician: Zafar Nelson Hospital Course: Patient later left AGAINST MEDICAL ADVICE Plan - Discharge Summary New Discharge Prescriptions: No Action lamoTRIgine [LaMICtal] 50 mg PO BID Discharge Medication List lamoTRIgine [LaMICtal] 50 mg PO BID 11/19/20 [History] Follow up Appointment(s)/Referral(s): Zafar Nelson MD [Primary Care Provider] - 1-2 days Discharge Disposition: Left Against Medical Advice
--- NOTE | 2020-11-19 15:52 | P.HPIM ---
History of Present Illness 25-year-old female with a history of IV heroine use does have history of hepatitis C can use to use her on a daily basis came in with compensative fever chills which started yesterday. Patient says she has a MRSA history in the past . Patient denied any cough. Patient denied any dysuria. Patient wanted to leave because of which a counseled her at length and explained the risks of leaving AGAINST MEDICAL ADVICE patient agreed to stay in the hospital. Patient was started on IV vancomycin and concern is a acute bacterial endocarditis. Review of Systems REVIEW OF SYSTEMS: CONSTITUTIONAL: As mentioned in HPI HEENT: No recent visual problems or hearing problems. Denied any sore throat. CARDIOVASCULAR: No chest pain, orthopnea, PND, no palpitations, no syncope. PULMONARY: No shortness of breath, no cough, no hemoptysis. GASTROINTESTINAL: No diarrhea, no nausea, no vomiting, no abdominal pain. NEUROLOGICAL: No headaches, no weakness, no numbness. HEMATOLOGICAL: Denies any bleeding or petechiae. GENITOURINARY: Denies any burning micturition, frequency, or urgency. MUSCULOSKELETAL/RHEUMATOLOGICAL: Denies any joint pain, swelling, or any muscle pain. ENDOCRINE: Denies any polyuria or polydipsia. The rest of the 14-point review of systems is negative. Past Medical History Past Medical History: Seizure Disorder History of Any Multi-Drug Resistant Organisms: MRSA Date of last positivie culture/infection: 2015 MDRO Source:: left side abscess Past Surgical History: No Surgical Hx Reported Additional Past Surgical History / Comment(s): D and C Past Psychological History: Anxiety, Bipolar, Depression Smoking Status: Current every day smoker Past Alcohol Use History: Occasional Past Drug Use History: Heroin, IV Drug Use, Marijuana, Methamphetamine Medications and Allergies Home Medications Medication Instructions Recorded Confirmed Type lamoTRIgine [LaMICtal] 50 mg PO BID 11/19/20 11/19/20 History Allergies Allergy/AdvReac Type Severity Reaction Status Date / Time Sulfa (Sulfonamide Allergy Rash/Hives Verified 11/19/20 07:47 Antibiotics) Physical Exam Vitals: Vital Signs Temp Pulse Resp BP Pulse Ox 11/19/20 10:55 98.6 F 87 18 109/56 99 11/19/20 07:33 100.2 F H 128 H 16 111/66 97 11/19/20 05:36 101.1 F H 148 H 18 136/91 99 Intake and Output 11/19/20 11/19/20 11/19/20 06:59 14:59 22:59 Other: Weight 61.235 kg PHYSICAL EXAMINATION: GENERAL: The patient is alert and oriented x3, not in any acute distress. Well developed, well nourished. HEENT: Pupils are round and equally reacting to light. EOMI. No scleral icterus. No conjunctival pallor. Normocephalic, atraumatic. No pharyngeal erythema. No thyromegaly. CARDIOVASCULAR: S1 and S2 present. No murmurs, rubs, or gallops. PULMONARY: Chest is clear to auscultation, no wheezing or crackles. ABDOMEN: Soft, nontender, nondistended, normoactive bowel sounds. No palpable organomegaly. MUSCULOSKELETAL: No joint swelling or deformity. EXTREMITIES: No cyanosis, clubbing, or pedal edema. NEUROLOGICAL: Gross neurological examination did not reveal any focal deficits. SKIN: No rashes. Results CBC & Chem 7: 11/19/20 06:21 11/19/20 06:21 Labs: Abnormal Lab Results - Last 24 Hours (Table) 11/19/20 11/19/20 Range/Units 06:21 06:21 Lymphocytes # 0.5 L (1.0-4.8) k/uL Sodium 136 L (137-145) mmol/L Creatinine 0.51 L (0.52-1.04) mg/dL Assessment and Plan Plan: Fever, sepsis: Counseling patient has IV drug use concern for an otitis patient will be admitted. But cultures will be obtained patient will be continued on IV vancomycin. Patient will be closely monitored. Continue with IV fluids -Tachycardia secondary to sepsis improved with IV fluids -History of hepatitis C: Patient related to follow with gastroneurology as an outpatient -History of MRSA in the past -Bipolar disorder and depression. -Continued nicotine use: Counseling was provided. -Continued opiate abuse and heroine use: Extensive counseling was provided regarding this
[2020-11-19] MEDS ORDERED: VANCOMYCIN 1,000 MG in SODIUM CHLORIDE 0.9% 250 ML IVPB SCH (18:00)
== END 2020-11-19 10:55 | disposition left against medical advice (07) ==
LOC: EC 05:33 → 6NMEDSUR 09:12
PROVIDERS: ADMIT Internal Medicine; ATTEND Internal Medicine
DX: A41.9 Sepsis, unspecified organism (principal); F11.10 Opioid abuse, uncomplicated; B19.20 Unspecified viral hepatitis C without hepatic coma; F15.10 Other stimulant abuse, uncomplicated; G40.909 Epilepsy, unspecified, not intractable, without status epilepticus; F31.9 Bipolar disorder, unspecified; F41.9 Anxiety disorder, unspecified; F17.200 Nicotine dependence, unspecified, uncomplicated; Z20.822 Contact with and (suspected) exposure to COVID-19; Z79.899 Other long term (current) drug therapy; Z88.2 Allergy status to sulfonamides; Z87.2 Personal history of diseases of the skin and subcutaneous tissue; Z86.14 Personal history of Methicillin resistant Staphylococcus aureus infection; Z98.890 Other specified postprocedural states; Z53.29 Procedure and treatment not carried out because of patient's decision for other reasons
CPT/HCPCS: 96361; 96374; 99284; 36415; 80053; 83605; 85025; 85610; 85730; 81003; 81025; 87040; 87502; 87635; 71046; G0378; J0696